=== PATIENT | male | born 1980 | race Caucasian/White ===

== ENCOUNTER 2017-02-15 23:19 | Emergency (ER) | payer OTHER ==
[~2017-02-15] VITALS: Ht 175.3 cm; Wt 77.1 kg
[~2017-02-15 23:19] MED LIST: BUSP-8 PO
[2017-02-15 23:24] VITALS: TEMP 36.6; Ht 175.3 cm; Wt 77.1 kg
[2017-02-15] MEDS ORDERED: DiphenhydrAMINE HCL 50 MG/ML VIAL IV STA (23:31)
[2017-02-15] MEDS ORDERED: KETOROLAC TROMETHAMINE 30 MG/ML VIAL IV STA (23:31)
[2017-02-15] MEDS ORDERED: PROCHLORPERAZINE 5 MG/ML 2 ML VIAL IV STA (23:31)
[2017-02-15] MEDS ORDERED: DEXAMETHASONE SOD INJ 10 MG/ML VIAL IV ONE (23:45)
[2017-02-15] MEDS ORDERED: SODIUM CHLORIDE 0.9% 1000ML 1,000 ML IV ONE (23:45)
[2017-02-16 01:24] VITALS: BP 131/77; PULSE 83; O2SAT 94
--- NOTE | 2017-02-16 03:26 | EMERGENCY ROOM VISIT NOTE ---
History First contact with patient: 23:26 Chief Complaint: HEADACHE Stated Complaint: MIGRAINE History of Present Illness The patient is a 36 year old male who presents to the Emergency Room with complaints of migraine headache that began worsening throughout the course of today. The patient has a history of migraine headaches, and this feels similar to previous episodes of bad migraines. The patient did take Maxalt today without relief of symptoms. He has not had fever or chills. No neck pain or carbon monoxide exposure. The patient rates his discomfort a 9/10. Review of Systems More than 10 systems were reviewed and otherwise negative with the exception of history of present illness. Past Medical/Surgical History Medical Problems: (1) ACQ SPONDYLOLISTHESIS (2) Anxiety (3) LUMBAR DISC DISPLACEMENT (4) Lumbar spinal fusion Family History No pertinent family history Social History Smoking Status: Current Every Day Smoker Marital Status: Occupation Status: employed Current/Historical Medications Scheduled Baclofen (Baclofen), 20 MG PO QID Buspirone Hcl (Buspirone Hcl), 10 MG PO QID Celecoxib (Celebrex), 50 MG PO BID Gabapentin (Neurontin), 300 MG PO HS Methylphenidate Hcl (Concerta), 54 MG PO QAM Mirtazapine (Remeron), 45 MG PO HS Oxycodone Hcl (Oxycodone Hcl), 15 MG PO QID Zolpidem Tartrate (Ambien), 10 MG PO HS Allergies Coded Allergies: Sulfa Drugs (Verified Allergy, Intermediate, tachycardia, hyperactivity, ) Penicillins (Verified Allergy, Unknown, HIVES, 10/05/15) Physical Exam Vital Signs Date Time Temp Pulse Resp B/P (MAP) Pulse Ox O2 Delivery O2 Flow Rate FiO2 02/16/17 01:24 83 18 131/77 94 02/16/17 00:24 86 18 139/84 96 Room Air 02/15/17 23:24 36.6 18 18 143/75 97 Room Air Pain Rating (0-10): 1.0 Physical Exam VITALS: Vitals are noted on the nurse's note and reviewed by myself. Vital signs stable. GENERAL: Well-developed, well-nourished, white male who is resting in a darkened emergency department room with his hands over his head and face. HEAD: Normocephalic atraumatic. EARS: External ear normal. External auditory canals clear, tympanic membranes pearly bateman without erythema or effusion bilaterally. EYES: Pupils equal round and reactive to light and accommodation. Conjunctivae without injection, sclerae without icterus. Extraocular movements intact. NOSE: Patent, turbinates without inflammation or discharge. MOUTH: Mucous membranes moist. Tonsils are not enlarged. Pharynx without erythema, blood, or exudate. Uvula midline. Airway patent. NECK: Supple without nuchal rigidity. No lymphadenopathy. No thyromegaly. Cervical spine is nontender. No meningismus. HEART: Regular rate and rhythm without murmurs gallops or rubs. LUNGS: Clear to auscultation bilaterally without wheezes, rales or rhonchi. No retractions or accessory muscle use. Medical Decision & Procedures Medications Administered Medications (Trade) Dose Ordered Sig/Narayan Route Start Time Stop Time Status Last Admin Dose Admin Sodium Chloride 1,000 ml @ 999 mls/hr Q1H1M ONCE IV 02/15/17 23:45 02/16/17 00:45 DC 02/15/17 23:37 999 MLS/HR Diphenhydramine HCl (Benadryl Inj) 50 mg NOW STAT IV 02/15/17 23:31 02/15/17 23:33 DC 02/15/17 23:37 50 MG Prochlorperazine Edisylate (Compazine Inj) 10 mg NOW STAT IV 02/15/17 23:31 02/15/17 23:33 DC 02/15/17 23:42 10 MG Dexamethasone Sodium Phosphate (Decadron Inj) 10 mg NOW ONCE IV 02/15/17 23:45 02/15/17 23:46 DC 02/15/17 23:40 10 MG Ketorolac Tromethamine (Toradol Inj) 30 mg NOW STAT IV 02/15/17 23:31 02/15/17 23:33 DC 02/15/17 23:39 30 MG ED Course Physical exam and history were performed. Nursing notes and EMR were reviewed. Patient appears to have a migraine headache that started earlier today. The patient does not appear toxic or with meningitis or encephalitis on examination. This feels similar to his bad migraines, and his last CT scan of the head was evidently less than 1 year ago. IV access was established and the patient was hydrated and medicated as above. The patient was monitored here in the department for nearly 3 hours. Over this interval he was able to sleep very comfortably in his ER bed. His family did arrive in the latter part of his visit, as the patient did present via ambulance for his complaint today. The patient appears well for discharge home and was much more comfortable. He will be discharged home under the care of his family and asked to follow with his primary care physician or neurologist with any ongoing or persistent symptoms. The chart was completed utilizing [employer] Voice Recognition Software. Grammatical errors, random word insertions, pronoun errors, and incomplete sentences are an occasional consequence of this system due to software limitations, ambient noise, and hardware issues. Any formal questions or concerns about the content, text, or information contained within the body of this dictation should be directly addressed to the provider for clarification. . Medical Decision The differential diagnosis includes, but is not limited to: acute intracranial bleed, meningitis, encephalitis, mass or mass effect, sinusitis, infection, tumor, headache, temporal arteritis and carbon monoxide exposure, and migraine. [place] Drug Monitoring Program Search Results: patient reviewed within database, see additional documentation (on chronic oxycodone 15 mg 4 times daily) Impression Primary Impression: Headache Departure Information Dispostion Home / Self-Care Condition GOOD Referrals Joann Romero M.D. (PCP) Forms HOME CARE DOCUMENTATION FORM, IMPORTANT VISIT INFORMATION Patient Instructions My [facility] Additional Instructions You were seen and evaluated today on an emergency basis only. This is not a substitute for, or an effort to provide, complete comprehensive medical care. It is not possible to recognize and treat all injuries or illnesses in a single emergency department visit. For this reason it is recommended that you followup with your primary care physician or neurologist this week for ongoing care and evaluation. DO NOT drive, drink alcohol, operate machinery, or perform dangerous activities today. You were given medications in the ER that can affect your ability to safely function or operate a vehicle. Rest today in a quiet, peaceful, dark environment and get a full 8-10 hrs of sleep tonight. Avoid loud noises, smoke/smoking, alcohol, bright lights, stress, or physical exertion today to minimize the chance the headache may return. Continue current medications. Ibuprofen(Motrin, Advil) may be used for fever or pain. Use 600mg every six hours as needed. Take with food. Avoid using more than 2400mg in a 24 hour period. Do not use 2400mg per day for more than three consecutive days without physician direction. Prolonged inappropriate use can lead to stomach upset or ulcers. (AND/OR) Acetaminophen(Tylenol) may be used for fever or pain. Use 1000mg every six hours as needed. Avoid using more than 4000mg in a 24 hour period. Return to the ER for passing out, worsening headache, vision problems, neck stiffness/pain, fevers, vomiting, worsening of your condition, or as needed.
[2017-07-16] MEDS ORDERED: CNC/54 PO (00:19)
[2017-07-16] MEDS ORDERED: LRS20 PO (00:19)
[2017-07-16] MEDS ORDERED: NRN/300 PO (00:19)
[2017-07-16] MEDS ORDERED: ZOLP10TA PO (00:19)
[2017-07-16] MEDS ORDERED: MIRT45TA PO (00:19)
[2017-07-16] MEDS ORDERED: CELE50CA PO (00:19)
[2017-07-16] MEDS ORDERED: OXY/15 PO (00:19)
== END 2017-02-16 01:24 | disposition home or self-care (01) ==
LOC: EDBD 23:19 → C.EDC 23:24
DX: R51 Headache (principal); F41.9 Anxiety disorder, unspecified; M51.26 Other intervertebral disc displacement, lumbar region; F17.200 Nicotine dependence, unspecified, uncomplicated; Z98.1 Arthrodesis status; Z79.899 Other long term (current) drug therapy; Z88.0 Allergy status to penicillin; Z88.2 Allergy status to sulfonamides

== ENCOUNTER 2017-07-04 01:40 | Emergency (ER) | payer OTHER ==
[~2017-07-04] VITALS: Ht 172.7 cm; Wt 75.0 kg
[~2017-07-04 01:40] MED LIST changes: +CELE50CA PO; +CNC/54 PO; +LRS20 PO; +MIRT45TA PO; +NRN/300 PO; +OXY/15 PO; +ZOLP10TA PO
[2017-07-04 01:46] VITALS: TEMP 36.8; Ht 172.7 cm; Wt 75.0 kg
[2017-07-04] MEDS ORDERED: LIDOCAINE HCL 1% 20 ML VIAL ONE (01:57)
[2017-07-04] MEDS ORDERED: XYLOCAINE 1%/SOD BICARB 20 ML VIAL INFIL ONE (02:15)
[2017-07-04 02:36] VITALS: BP 130/77; PULSE 88; O2SAT 93
--- NOTE | 2017-07-04 04:03 | EMERGENCY ROOM VISIT NOTE ---
ED Visit Note First contact with patient: 01:51 CHIEF COMPLAINT: Finger laceration HISTORY OF PRESENT ILLNESS: This 37-year-old patient presents to the emergency department after cutting the left second finger on a table saw on accident just prior to arrival and has superficial abrasions to the left third finger and right second finger. The bleeding has not stopped. Denies weakness or numbness of the fingers. The patient has full range of motion of the fingers. The patient rates the pain as mild and 2/10. The patient denies any other injuries. The patient's tetanus shot is up to date. REVIEW OF SYSTEMS: A 6 system review of systems was completed with positives and pertinent negatives listed in the HPI. ALLERGIES: Penicillin, sulfa MEDICATIONS: Oxycodone, reviewed PMH: Medical Problems: (1) ACQ SPONDYLOLISTHESIS Status: Resolved (2) Anxiety Status: Chronic (3) LUMBAR DISC DISPLACEMENT Status: Resolved (4) Lumbar spinal fusion Status: Resolved SOCIAL HISTORY: Drug use PHYSICAL EXAM: Vital Signs: Reviewed Nurse's notes, vital signs stable. GENERAL : Pleasant male, in no acute distress, well developed, well nourished. SKIN: There is a 3 cm long laceration on the palmar aspect of the left second finger. The edges gape apart with traction. There is no foreign material in the wound and it looks clean. There is bleeding. No deep structures such as tendons, bones, or significant blood vessels are seen in the base of the wound. Extension and flexion of the finger is full and strong. Superficial abrasion to the left third distal aspect finger and superficial abrasion to the right second distal aspect of the finger Full range of motion of the wrist and other fingers. Capillary refill less than 2 seconds. Normal sensation to light and sharp touch. EMERGENCY DEPARTMENT COURSE: I examined the patient. Using sterile technique the wound was cleansed with Betadine. 2 ml of 1% buffered lidocaine was used to perform a digital block to anesthetize the patient. The area was sterilely draped. Once the patient was anesthetized, the wound was copiously irrigated under pressure with sterile saline. The wound was explored and there were no deep structures injured. The laceration was repaired using 7 simple interrupted 4-0 nylon sutures. The patient tolerated the procedure well. Hemostasis was achieved. The area was cleaned with sterile saline and dressed with bacitracin ointment and bandage. Patient was placed in a metal cage finger splint for protection and neurovascular status was rechecked after placement and is intact. The patient was discharged home in good condition. DIAGNOSIS: #1 Finger laceration, left second finger, initial encounter #2 superficial abrasion to left third finger and right second finger DISCHARGE INSTRUCTIONS & TREATMENT: As below Problem List Medical Problems: (1) ACQ SPONDYLOLISTHESIS Status: Resolved (2) Anxiety Status: Chronic (3) LUMBAR DISC DISPLACEMENT Status: Resolved (4) Lumbar spinal fusion Status: Resolved Current/Historical Medications Scheduled Baclofen (Baclofen), 20 MG PO QID Buspirone Hcl (Buspirone Hcl), 10 MG PO QID Celecoxib (Celebrex), 50 MG PO BID Gabapentin (Neurontin), 300 MG PO HS Methylphenidate Hcl (Concerta), 54 MG PO QAM Mirtazapine (Remeron), 45 MG PO HS Oxycodone Hcl (Oxycodone Hcl), 15 MG PO QID Zolpidem Tartrate (Ambien), 10 MG PO HS Allergies Coded Allergies: Sulfa Drugs (Verified Allergy, Intermediate, tachycardia, hyperactivity, ) Penicillins (Verified Allergy, Unknown, HIVES, 10/05/15) Vital Signs Date Time Temp Pulse Resp B/P (MAP) Pulse Ox O2 Delivery O2 Flow Rate FiO2 07/04/17 02:36 88 18 130/77 93 07/04/17 01:46 36.8 98 18 132/91 93 Room Air Departure Information Impression Primary Impression: Laceration of left index finger Additional Impression: finger abrasions Dispostion Home / Self-Care Condition GOOD Forms WORK / SCHOOL INSTRUCTIONS, HOME CARE DOCUMENTATION FORM, IMPORTANT VISIT INFORMATION Patient Instructions [facility], ED Abrasion, ED Laceration All Additional Instructions Antibiotic ointment and bandage to the areas until healed. Follow up with family doctor or return for any signs of infection (increasing redness, swelling , drainage, or fever). Keep covered when in sun until fully healed then SPF 50 or higher until scar healed. Wear a finger cage over bacitracin and bandage for protection wall using your hands. Do not have it so tight that you cannot feel your finger. Keep wound clean and dry. Do not allow any crusting or dried blood to accumulate on sutures. If this occurs, use a 1:1 solution of hydrogen peroxide/ water on a Q-tip to clean the wound. Use an antibiotic ointment for 3-4 days, then let wound dry. Suture removal in 10-12 days. Return sooner for any signs of infection (increasing redness, swelling, drainage). Ice and elevate for swelling and pain. Ibuprofen 600 mg and Tylenol 1000 mg every 6 hrs for pain. Keep covered when in sun until sutures removed then SPF 50 or higher for one year. Vitamin E oil if desired two weeks after suture removal for reduction of scar. Problem Qualifiers
== END 2017-07-04 02:37 | disposition home or self-care (01) ==
LOC: C.EDB 01:41
DX: S61.217A Laceration without foreign body of left little finger without damage to nail, initial encounter (principal); S60.413A Abrasion of left middle finger, initial encounter; S60.410A Abrasion of right index finger, initial encounter; W31.2XXA Contact with powered woodworking and forming machines, initial encounter; F41.9 Anxiety disorder, unspecified; M43.10 Spondylolisthesis, site unspecified; M51.26 Other intervertebral disc displacement, lumbar region; Z98.1 Arthrodesis status; Z79.899 Other long term (current) drug therapy; Z88.2 Allergy status to sulfonamides; Z88.0 Allergy status to penicillin

== ENCOUNTER 2017-07-16 18:03 | Emergency (ER) | payer OTHER ==
[~2017-07-16] VITALS: Ht 172.7 cm; Wt 75.3 kg
[2017-07-16 18:12] VITALS: Ht 172.7 cm; Wt 75.3 kg
[2017-07-16] MEDS ORDERED: BUSP15TA70 PO (18:36)
[2017-07-16] MEDS ORDERED: CEPH500C2 PO (18:38)
[2017-07-16] MEDS ORDERED: CEPHALEXIN 500MG HOME PACK 1 EA BTL PO ONE (18:45)
[2017-07-16 18:59] VITALS: BP 144/92; PULSE 99; TEMP 36.5; O2SAT 97
--- NOTE | 2017-07-17 23:23 | EMERGENCY ROOM VISIT NOTE ---
ED Visit Note First contact with patient: 18:14 CHIEF COMPLAINT: I need to have my stitches removed. HISTORY OF PRESENT ILLNESS: Mr. Krishnamurthy is a 37-year-old white male who ambulates into the ED accompanied by his 2 daughters requesting suture removal. Patient reports he sustained a laceration on July 03, 12 days ago, and was seen in this emergency department and had his wound repaired with sutures. He reports initially he feels like the wound was healing well but over the last 3 days he has noted some redness and swelling around the wound and today he noted some pus like drainage from the wound. He denies any associated symptoms including fevers, chills, sweats, other skin eruptions, upper respiratory tract symptoms, shortness of breath, decreased appetite, nausea/vomiting, finger pain , finger weakness/numbness/tingling. PHYSICAL EXAM: Vital Signs: Date Time Temp Pulse Resp B/P (MAP) Pulse Ox O2 Delivery O2 Flow Rate FiO2 07/16/17 18:12 36.5 99 18 144/92 97 Room Air General: 37 year-old white male in no acute distress, nontoxic-appearing, afebrile and hemodynamically stable. Neurological: Awake, alert and oriented 3. Answering questions appropriately and following commands. Left Index Finger: A gross bony deformity. Patient has swelling and erythema around his sutured wound. In the central portion of the wound there is minimal purulent drainage. Additionally there is minimal maceration of the wound edges. He has full range of motion in flexion and extension of the PIP, DIP and MCP joints. Throughout the finger the skin was warm and pink and capillary refill is brisk. He was able to distinguish light sensations through all dermatomes. ED COURSE: Patient is assessed as noted above. Patient's medication list was reviewed. A clean dressing was placed over the wound. Patient was educated about today's findings and instructed on his treatment plan ; he verbalized understanding and agreement with this plan. DISPOSITION: Patient discharged home in stable condition. CLINICAL IMPRESSION: Wound infection. PLAN: Patient is encouraged use ibuprofen or acetaminophen as needed for pain per Patient was placed on a 5 day course of Keflex 500 mg 4 times a day. Patient was educated on wound care and worsening signs of infection. Patient is encouraged to follow-up with his family physician or return to the ED after his course of antibiotics for recheck and possible suture removal. Patient was encouraged return to the ED for any worsening signs of infection or any new/concerning symptoms.
== END 2017-07-16 18:59 | disposition home or self-care (01) ==
LOC: C.EDB 18:05 → C.EDD 18:59
DX: T81.4XXA Infection following a procedure, initial encounter (principal); Y84.8 Other medical procedures as the cause of abnormal reaction of the patient, or of later complication, without mention of misadventure at the time of the procedure

== ENCOUNTER 2017-07-24 16:02 | Emergency (ER) | payer OTHER ==
[~2017-07-24] VITALS: Ht 172.7 cm; Wt 77.1 kg
[~2017-07-24 16:02] MED LIST changes: -BUSP-8 PO; +BUSP15TA70 PO
[2017-07-24 16:05] VITALS: Ht 172.7 cm; Wt 77.1 kg
--- NOTE | 2017-07-24 16:31 | EMERGENCY ROOM VISIT NOTE ---
ED Visit Note First contact with patient: 16:20 CHIEF COMPLAINT: Suture removal This patient returns to the ED today for removal of sutures that were placed almost 3 weeks ago. The patient was seen here one week ago for evaluation for possible suture removal, but he had developed a wound infection at that time, and it was not felt that the sutures should be removed. He was given a five- day course of Keflex which she completed, and he reports that there has been no further swelling, redness, or drainage from the wound. The patient feels like the laceration has healed well. REVIEW OF SYSTEMS: Head: No headache, injury or neck pain. Skin: No rash, new lesions, or masses. General: No fever or chills, fatigue, loss of appetite , or significant recent weight gain or loss. PMH: Reviewed and unchanged from prior visit. SOCIAL HISTORY: Patient lives at home. PHYSICAL EXAM: Vital Signs: Reviewed Nurse's notes. There is a sutured wound on the left second finger with no signs of infection. There is no erythema, swelling, or tenderness. EMERGENCY DEPARTMENT COURSE: The sutures were removed without any difficulty and there was no separation of the wound edges. DIAGNOSIS: Healing laceration and suture removal DISCHARGE INSTRUCTIONS AND TREATMENT: Wash any remaining crusts off of the wound today and resume your normal activities. Problem List Medical Problems: (1) ACQ SPONDYLOLISTHESIS Status: Resolved (2) Anxiety Status: Chronic (3) Headache Status: Resolved (4) Laceration of left forearm Status: Resolved (5) LUMBAR DISC DISPLACEMENT Status: Resolved (6) Lumbar spinal fusion Status: Resolved (7) Paresthesias with subjective weakness Status: Resolved Current/Historical Medications Scheduled Baclofen (Baclofen), 20 MG PO QID Buspirone Hcl (Buspar), 15 MG PO QID Celecoxib (Celebrex), 50 MG PO BID Gabapentin (Neurontin), 300 MG PO QID Methylphenidate Hcl (Concerta), 54 MG PO QAM Mirtazapine (Remeron), 45 MG PO HS Oxycodone Hcl (Oxycodone Hcl), 15 MG PO QID Zolpidem Tartrate (Ambien), 10 MG PO HS Allergies Coded Allergies: Sulfa Drugs (Verified Allergy, Intermediate, tachycardia, hyperactivity, ) Penicillins (Verified Allergy, Unknown, HIVES, 10/05/15) Vital Signs Date Time Temp Pulse Resp B/P (MAP) Pulse Ox O2 Delivery O2 Flow Rate FiO2 07/24/17 16:05 36.8 73 20 149/94 95 Room Air Departure Information Impression Primary Impression: Encounter for removal of sutures Referrals Joann Romero M.D. (PCP) Patient Instructions [facility]
[2017-07-24 16:32] VITALS: BP 149/94; PULSE 73; TEMP 36.8; O2SAT 95
== END 2017-07-24 16:33 | disposition home or self-care (01) ==
LOC: C.EDB 16:02 → C.EDD 16:33
DX: S61.211D Laceration without foreign body of left index finger without damage to nail, subsequent encounter (principal); X58.XXXD Exposure to other specified factors, subsequent encounter

== ENCOUNTER 2017-07-31 20:17 | Emergency (ER) | payer OTHER ==
[~2017-07-31] VITALS: Ht 172.7 cm; Wt 75.3 kg
[2017-07-31 20:26] VITALS: TEMP 37; Ht 172.7 cm; Wt 75.3 kg
[2017-07-31] MEDS ORDERED: MoRPHine SULFATE 10 MG/ML CARP/VIAL IM STA (21:26)
[2017-07-31] MEDS ORDERED: KETOROLAC TROMETHAMINE 60 MG/2 ML VIAL IM STA (21:26)
[2017-07-31] MEDS ORDERED: HYDROmorphone INJ 1 MG/ML SYR IM STA (23:14)
--- NOTE | 2017-07-31 23:33 | EMERGENCY ROOM VISIT NOTE ---
ED Visit Note First contact with patient: 20:55 I have seen and examined this patient with Diony Mckeon and generally agree with the treatment plan as discussed. Problem List Medical Problems: (1) ACQ SPONDYLOLISTHESIS Status: Resolved (2) Anxiety Status: Chronic (3) Headache Status: Resolved (4) Laceration of left forearm Status: Resolved (5) LUMBAR DISC DISPLACEMENT Status: Resolved (6) Lumbar spinal fusion Status: Resolved (7) Paresthesias with subjective weakness Status: Resolved Current/Historical Medications Scheduled Baclofen (Baclofen), 20 MG PO QID Buspirone Hcl (Buspar), 15 MG PO QID Celecoxib (Celebrex), 50 MG PO BID Gabapentin (Neurontin), 300 MG PO QID Methylphenidate Hcl (Concerta), 54 MG PO QAM Mirtazapine (Remeron), 45 MG PO HS Oxycodone Hcl (Oxycodone Hcl), 15 MG PO QID Zolpidem Tartrate (Ambien), 10 MG PO HS Allergies Coded Allergies: Sulfa Drugs (Verified Allergy, Intermediate, tachycardia, hyperactivity, ) Penicillins (Verified Allergy, Unknown, HIVES, 10/05/15) Vital Signs Date Time Temp Pulse Resp B/P (MAP) Pulse Ox O2 Delivery O2 Flow Rate FiO2 07/31/17 22:36 84 19 138/87 100 Room Air 07/31/17 20:26 37.0 104 18 144/92 98 Room Air Medications Administered Medications (Trade) Dose Ordered Sig/Narayan Route Start Time Stop Time Status Last Admin Dose Admin Morphine Sulfate (MoRPHine SULFATE INJ) 10 mg NOW STAT IM 07/31/17 21:26 07/31/17 21:27 DC 07/31/17 22:30 10 MG Ketorolac Tromethamine (Toradol Inj) 60 mg NOW STAT IM 07/31/17 21:26 07/31/17 21:27 DC 07/31/17 22:31 60 MG Hydromorphone HCl (Dilaudid Inj) 1 mg ONE STAT IM 07/31/17 23:14 07/31/17 23:15 DC 07/31/17 23:29 1 MG Departure Information Impression Primary Impression: Acute exacerbation of chronic low back pain Dispostion Home / Self-Care Forms HOME CARE DOCUMENTATION FORM, IMPORTANT VISIT INFORMATION Patient Instructions My [facility] Additional Instructions Follow-up with your family doctor and pain clinic to discuss further pain management options. If pain persists, call Dr. Ewing's office for reevaluation.
[2017-07-31 23:37] VITALS: BP 137/70; PULSE 82; O2SAT 98
--- NOTE | 2017-08-01 00:08 | EMERGENCY ROOM VISIT NOTE ---
History First contact with patient: 20:55 Chief Complaint: BACK PAIN Stated Complaint: SEVERE LUMBAR BACK PAIN History of Present Illness The patient is a 37 year old male who presents to the Emergency Room with complaints of severe lower back pain. The patient reports a history of chronic back pain, status post back surgery with Dr. Ewing and a multispecialty team from [facility] in [place]. This surgery was performed in December 2010. The patient reports that he continues to have chronic pain, and is currently under pain management with the [facility] in [place]. The patient admits that he missed his appointment on 07/28/17 because his daughter had a doctor's appointment for a finger infection. When he realized that he forgot his appointment, he went to the pain clinic and was advised that he was going to be discharged due to policy agreements. The patient reports that he has run out of his oxycodone medications, and has not had them for the past 5 days. He was seen by his PCP, Dr. Romero, who provided him a prescription for prednisone and Ativan. He has an appointment in 2 days with a counselor at his pain clinic to consider further treatment options. The patient denies any recent injury to his back. He denies any bladder or bowel incontinence, saddle anesthesias, lower extremity weakness or foot drop. He rates his discomfort a 9 out of 10. Review of Systems 10 system review was performed and was negative except for pertinent positives and negatives as indicated in history of present illness Past Medical/Surgical History Medical Problems: (1) ACQ SPONDYLOLISTHESIS (2) Anxiety (3) Headache (4) Laceration of left forearm (5) LUMBAR DISC DISPLACEMENT (6) Lumbar spinal fusion (7) Paresthesias with subjective weakness Family History Unremarkable Social History Smoking Status: Current Every Day Smoker Alcohol Use: none Marital Status: Housing Status: lives with family Occupation Status: employed Current/Historical Medications Scheduled Baclofen (Baclofen), 20 MG PO QID Buspirone Hcl (Buspar), 15 MG PO QID Celecoxib (Celebrex), 50 MG PO BID Gabapentin (Neurontin), 300 MG PO QID Methylphenidate Hcl (Concerta), 54 MG PO QAM Mirtazapine (Remeron), 45 MG PO HS Oxycodone Hcl (Oxycodone Hcl), 15 MG PO QID Zolpidem Tartrate (Ambien), 10 MG PO HS Physical Exam Vital Signs Date Time Temp Pulse Resp B/P (MAP) Pulse Ox O2 Delivery O2 Flow Rate FiO2 07/31/17 23:37 82 19 137/70 98 Room Air 07/31/17 22:36 84 19 138/87 100 Room Air 07/31/17 20:26 37.0 104 18 144/92 98 Room Air Physical Exam CONSTITUTIONAL: Healthy and well nourished. Alert and oriented X 3 with positive affect. Patient appears in mild to moderate discomfort. HEENT: Normocephalic, atraumatic. Pupils equal, round and reactive. NECK: Full active range of motion without discomfort. RESPIRATORY: Clear to auscultation bilaterally with no wheezing, crackles, rhonchi or stridor. CARDIOVASCULAR: Regular rate and rhythm with no murmurs, rubs or gallops. GASTROINTESTINAL: Bowel sounds present in all quadrants. Soft and nontender to palpation. MUSCULOSKELETAL: The patient has generalized tenderness to palpation through the lower back region. Negative sitting straight leg raise. Negative logroll. Pedal pulses are intact. Ankle plantar/dorsiflexion strength is 4 out of 5 and symmetric bilaterally. INTEGUMENTARY: No rash or other significant dermatologic conditions noted. NEUROLOGIC: No focal neurologic deficits noted. Lower extremities are sensory intact. Medical Decision & Procedures Medications Administered Medications (Trade) Dose Ordered Sig/Narayan Route Start Time Stop Time Status Last Admin Dose Admin Morphine Sulfate (MoRPHine SULFATE INJ) 10 mg NOW STAT IM 07/31/17 21:26 07/31/17 21:27 DC 07/31/17 22:30 10 MG Ketorolac Tromethamine (Toradol Inj) 60 mg NOW STAT IM 07/31/17 21:26 07/31/17 21:27 DC 07/31/17 22:31 60 MG Hydromorphone HCl (Dilaudid Inj) 1 mg ONE STAT IM 07/31/17 23:14 07/31/17 23:15 DC 07/31/17 23:29 1 MG ED Course Patient history and physical exam were performed. Nurse's notes were reviewed. Vital signs were reviewed, showing an elevated blood pressure 144/92. The patient is forthright and admits that he made a mistake by missing his appointment at the pain clinic. The patient reports that he has been a customer at this pain clinic since 2011, and has always been compliant with his pain contract and policies. She does have an appointment with a counselor at the clinic on Monday to discuss further treatment options. The patient reports that he was told to come to the emergency department for pain management , but not to receive any additional prescriptions or medicines to take home. The patient is therefore refusing any prescriptions or home packs, and is only requesting pain management while in the emergency department. The patient reported that he was able to call for a ride as he drove here himself. The patient was accordingly administered morphine 10 mg and Toradol 60 mg IM. The patient then reported that he called several people and was unable to secure a ride. He also reported that the medications administered did not provide any relief. We did explain that the patient cannot drive for at least 4 hours after receiving his injection, the patient voiced understanding. He was administered an additional Dilaudid 1 mg IM, and was provided discharge instructions. Our ED [employer] Collector escorted the patient to the waiting room to wait for his ride, advising security that he received narcotic treatment and drove to the emergency department. The patient was instructed to follow-up with the pain clinic and PCP as needed for further management of his acute exacerbation of chronic lumbar pain. It is noted that the patient's blood pressure was elevated at 144/92 while in the emergency department, and was encouraged to follow-up with his PCP for blood pressure recheck. The case was also discussed with Dr. Alanis, ED attending physician, who agrees with workup, plan of care and also independently evaluated the patient. Medical Decision Based on history and physical exam findings, I do not suspect acute trauma, fracture, hematoma, abscess, cellulitis or emergent compressive neuropathy such as conus medullaris or cauda equina syndrome. [place] Drug Monitoring Program Search Results: patient reviewed within database, see additional documentation Medication Reconcilliation Current Medication List: was personally reviewed by me Blood Pressure Screening Patient's blood pressure: Elevated blood pressure Blood pressure disposition: Referred to PCP Impression Primary Impression: Acute exacerbation of chronic low back pain Additional Impression: Elevated blood pressure reading Departure Information Dispostion Home / Self-Care Forms HOME CARE DOCUMENTATION FORM, IMPORTANT VISIT INFORMATION Patient Instructions My [facility] [address] Additional Instructions Follow-up with your family doctor and pain clinic to discuss further pain management options. If pain persists, call Dr. Ewing's office for reevaluation. Problem Qualifiers
== END 2017-07-31 23:55 | disposition home or self-care (01) ==
LOC: C.EDB 20:19 → C.EDC 23:55
DX: M54.5 Low back pain (principal); G89.29 Other chronic pain; R03.0 Elevated blood-pressure reading, without diagnosis of hypertension; F41.9 Anxiety disorder, unspecified; F17.200 Nicotine dependence, unspecified, uncomplicated; Z98.1 Arthrodesis status; Z79.899 Other long term (current) drug therapy

== ENCOUNTER 2018-04-24 19:05 | Inpatient (IN) | payer OTHER ==
[~2018-04-24] VITALS: Ht 172.7 cm; Wt 79.2 kg
[~2018-04-24 19:05] MED LIST changes: +CNC/36 PO; -CNC/54 PO
[2018-04-24] MEDS ORDERED: KETOROLAC TROMETHAMINE 30 MG/ML VIAL IV STA (19:22)
[2018-04-24] MEDS ORDERED: SODIUM CHLORIDE 0.9% 1000ML 1,000 ML IV ONE ×2 (19:22→19:42)
--- NOTE | 2018-04-24 19:28 | EMERGENCY ROOM VISIT NOTE ---
History Report prepared by Gabi: Marlena Sawyer Under the Supervision of: Dr. Eulalio Palmer M.D. First contact with patient: 19:16 Chief Complaint: DENTAL PAIN Stated Complaint: SEVERE SWELLING, JAW,MOUTH,NAUSEA,NUMBNESS HANDS History of Present Illness The patient is a 37 year old male who presents to the Emergency Room with complaints of worsening swelling on the right side of his mouth since this morning. The patient states that the swelling is moving to his chin and his lips are beginning to swell. He also states that he began to feel feverish around an hour ago and that his fingers recently began tingling. The patient states that he has been drinking a lot but he is unable to urinate. The patient states that he has had a previous abscess in his mouth before but states it was nothing like this. The patient states that he was on antibiotics about three weeks ago. He also states that he taxes oxycodone for a back condition that he recently took about 45 minutes ago. The patient states that he does smoke, he does not chew and does not have any drug or alcohol use. Source of History: patient Onset: this morning Position: jaw (right ) Quality: other (swelling ) Timing: worsening Associated Symptoms: + fevers, + urinary symptoms Note: additional symptoms: tingling fingers Review of Systems See HPI for pertinent positives and negatives. A total of ten systems were reviewed and were otherwise negative. Past Medical & Surgical Medical Problems: (1) ACQ SPONDYLOLISTHESIS (2) Anxiety (3) Facial cellulitis (4) Headache (5) Laceration of left forearm (6) LUMBAR DISC DISPLACEMENT (7) Lumbar spinal fusion (8) Paresthesias with subjective weakness Social History Smoking Status: Current Every Day Smoker Alcohol Use: none Marital Status: Housing Status: lives with family Occupation Status: employed Current/Historical Medications Scheduled Baclofen (Baclofen), 20 MG PO TID Buspirone Hcl (Buspar), 15 MG PO QID Celecoxib (Celebrex), 50 MG PO BID Gabapentin (Neurontin), 1,200 MG PO HS Lisinopril (Prinivil), 5 MG PO DAILY Methylphenidate Hcl (Concerta), 36 MG PO DAILY Mirtazapine (Remeron), 45 MG PO HS Oxycodone Hcl (Oxycodone Hcl), 15 MG PO QID Rizatriptan Benzoate (Maxalt), 1 TAB PO UD Zolpidem Tartrate (Ambien), 10 MG PO HS Allergies Coded Allergies: Sulfa Drugs (Verified Allergy, Intermediate, tachycardia, hyperactivity, ) Penicillins (Verified Allergy, Unknown, HIVES, 03/09/18) Physical Exam Vital Signs Date Time Temp Pulse Resp B/P (MAP) Pulse Ox O2 Delivery O2 Flow Rate FiO2 04/24/18 21:47 38.1 99 18 122/72 94 Room Air 04/24/18 21:06 103 16 133/80 97 Room Air 04/24/18 20:27 39.0 95 18 138/92 96 Room Air 04/24/18 20:15 99 28 138/92 99 Room Air 04/24/18 19:46 102 04/24/18 19:07 37.8 92 18 158/113 97 Room Air Physical Exam GENERAL: Awake, alert, well-appearing mild discomfort evident HENT: atraumatic. Right mandibular and submandibular swelling and tenderness. No crepitus. No pharyngeal erythema or swelling. No stridor. Poor dentition. EYES: Normal conjunctiva. Sclera non-icteric. NECK: Supple. No nuchal rigidity. RESPIRATORY: Clear to auscultation. No wheezes. Normal respiratory effort. CARDIAC: Normal rate. Normal rhythm. Extremities warm and well perfused. GI: Soft, non-distended. No tenderness to palpation. No rebound or guarding. N RECTAL: Deferred. MUSCULOSKELETAL: Atraumatic. Chest examination reveals no tenderness. LOWER EXTREMITIES: Calves are equal size bilaterally and non-tender. No edema NEURO: Normal sensorium. No sensory or motor deficits noted. No facial droop. SKIN: Warm and dry. No rash or jaundice noted. Medical Decision & Procedures ER Provider Diagnostic Interpretation: Radiology results as stated below per my review and radiologist interpretation: CT SCAN OF THE NECK WITH IV CONTRAST CLINICAL HISTORY: Right-sided facial swelling. COMPARISON STUDY: No priors. TECHNIQUE: Following the IV administration of 115 cc of Optiray 320, CT scan of the soft tissues of the neck was performed from the skull base to the upper chest. Images are reviewed in the axial, sagittal, and coronal planes. IV contrast was administered without complication. A dose lowering technique was utilized adhering to the principles of ALARA. CT DOSE: 426.59 mGy.cm FINDINGS: Soft tissues and dentition: Numerous dental caries are identified. There is a periapical lucency identified around the most posterior right maxillary molar. Periapical lucencies are also identified around a right posterior mandibular molar, the right mandibular central and lateral incisors, the right mandibular canine, as well as a left mandibular premolar and molar. There is cortical breakthrough seen around the periapical lucency involving the left mandibular molar. There is extensive superficial and deep soft tissue edema throughout the right facial soft tissues, greatest overlying the mandible. A subperiosteal abscess is seen superficial to the right anterior mandible on image #170. This measures 2.2 x 1.8 x 0.6 cm. Pharynx: There is soft tissue inflammation identified within the right submental and sublingual soft tissues, which also involves the anterior pharyngeal soft tissues. The appearance is concerning for Jb's angina. The nasopharynx is normal and appearance. There is equivocal narrowing of the supraglottic airway. There is no evidence of mass lesion. The vocal cords are symmetric. The parapharyngeal fat is maintained. The prevertebral/retropharyngeal soft tissues are within normal limits. There is no evidence of tonsillar abscess. The epiglottis is normal. Lymphadenopathy: Mildly enlarged and hyperemic submandibular and cervical lymph nodes are likely on a reactive basis. The largest node in the right cervical chain as seen on image #183 and measures 2.0 cm and length Thyroid: Normal in size and attenuation. Salivary glands: The parotid and submandibular glands are within normal limits. Brain parenchyma: The visualized brain parenchyma at the skull base is normal in appearance. Vascular structures: The carotid arteries and jugular veins are widely patent bilaterally. Skeletal structures: Imaged portions of the calvarium at the skull base are within normal limits. The cervical spine appears intact. Orbits: The bony orbits are intact. Orbital contents are normal in appearance. Sinuses and mastoids: Mild mucosal thickening is seen throughout the paranasal sinuses. The mastoid air cells are well pneumatized. Lung apices: Visualized apical lung parenchyma is clear. IMPRESSION: 1. There are numerous dental caries as well as periapical lucencies as detailed above. Follow-up with dentistry is recommended. 2. There is evidence of extensive right-sided facial cellulitis, with a subperiosteal abscess along the right anterior aspect of the mandible as detailed above. 3. Inflammatory change/infection extends into the right submental and sublingual soft tissues and also involves the anterior pharynx. The appearance is concerning for Jb's angina. 4. There is questionable narrowing of the supraglottic airway. 5. Mildly enlarged cervical lymph nodes are likely on a reactive basis. Electronically signed by: Alec Perez M.D. 04/24/2018 8:32 PM Dictated Date/Time: 04/24/2018 8:20 PM Laboratory Results 04/24/18 19:25 Red Blood Count 5.11, Mean Corpuscular Volume 92.0, Mean Corpuscular Hemoglobin 32.9, Mean Corpuscular Hemoglobin Concent 35.7, Mean Platelet Volume 10.7, Neutrophils (%) (Auto) 77.0, Lymphocytes (%) (Auto) 14.3, Monocytes (%) (Auto) 7.7, Eosinophils (%) (Auto) 0.5, Basophils (%) (Auto) 0.1, Neutrophils # (Auto) 17.95, Lymphocytes # (Auto) 3.34, Monocytes # (Auto) 1.80, Eosinophils # (Auto) 0.12, Basophils # (Auto) 0.03 04/24/18 19:25 Test 04/24/18 19:25 04/24/18 19:53 White Blood Count 23.33 K/uL (4.8-10.8) Red Blood Count 5.11 M/uL (4.7-6.1) Hemoglobin 16.8 g/dL (14.0-18.0) Hematocrit 47.0 % (42-52) Mean Corpuscular Volume 92.0 fL (80-100) Mean Corpuscular Hemoglobin 32.9 pg (25-34) Mean Corpuscular Hemoglobin Concent 35.7 g/dl (32-36) Platelet Count 272 K/uL (130-400) Mean Platelet Volume 10.7 fL (7.4-10.4) Neutrophils (%) (Auto) 77.0 % Lymphocytes (%) (Auto) 14.3 % Monocytes (%) (Auto) 7.7 % Eosinophils (%) (Auto) 0.5 % Basophils (%) (Auto) 0.1 % Neutrophils # (Auto) 17.95 K/uL (1.4-6.5) Lymphocytes # (Auto) 3.34 K/uL (1.2-3.4) Monocytes # (Auto) 1.80 K/uL (0.11-0.59) Eosinophils # (Auto) 0.12 K/uL (0-0.5) Basophils # (Auto) 0.03 K/uL (0-0.2) RDW Standard Deviation 45.3 fL (36.4-46.3) RDW Coefficient of Variation 13.4 % (11.5-14.5) Immature Granulocyte % (Auto) 0.4 % Immature Granulocyte # (Auto) 0.09 K/uL (0.00-0.02) Anion Gap 8.0 mmol/L (3-11) Est Creatinine Clear Calc Drug Dose 87.5 ml/min Estimated GFR () 96.0 Estimated GFR (Non- 82.9 BUN/Creatinine Ratio 6.6 (10-20) Calcium Level 9.6 mg/dl (8.5-10.1) Lactic Acid Level 1.5 mmol/L (0.4-2.0) Laboratory results reviewed by me Medications Administered Medications (Trade) Dose Ordered Sig/Narayan Route Start Time Stop Time Status Last Admin Dose Admin Ketorolac Tromethamine (Toradol Inj) 15 mg NOW STAT IV 04/24/18 19:22 04/24/18 19:25 DC 04/24/18 19:37 15 MG Clindamycin Phosphate 600 mg/ Dextrose 104 ml @ 100 mls/hr ONE ONCE IV 04/24/18 19:30 04/24/18 20:32 DC 04/24/18 20:28 100 MLS/HR Sodium Chloride 1,000 ml @ 999 mls/hr Q1H1M ONCE IV 04/24/18 19:22 04/24/18 20:22 DC 04/24/18 19:38 999 MLS/HR Sodium Chloride 1,000 ml @ 999 mls/hr Q1H1M ONCE IV 04/24/18 19:42 04/24/18 20:42 DC 04/24/18 20:29 999 MLS/HR Vancomycin HCl 1500 mg/Sodium Chloride 280 ml @ 125 mls/hr NOW STAT IV 04/24/18 20:53 04/24/18 23:07 DC 04/24/18 21:46 125 MLS/HR Hydromorphone HCl (Dilaudid Inj) 1 mg NOW STAT IV 04/24/18 20:58 04/24/18 20:59 DC 04/24/18 21:05 1 MG Sodium Chloride 1,000 ml @ 125 mls/hr Q8H IV 04/24/18 21:37 05/24/18 21:36 04/24/18 23:19 125 MLS/HR Acetaminophen (Tylenol Tab) 650 mg Q4H PRN PO 04/24/18 21:45 05/24/18 21:44 04/24/18 23:12 650 MG Morphine Sulfate (MoRPHine SULFATE INJ) 3 mg Q3HWA PRN IV 04/24/18 21:45 05/08/18 21:44 04/24/18 23:14 3 MG ED Course 1915: The patient was evaluated in room C1B. A complete history and physical exam was performed. 1921: Ordered Sodium Chloride 1000 ml @ 999 mls/hr IV and Toradol Inj 15 mg IV. 1929: Ordered Clindamycin Phosphate 600 mg/Dextrose 104 ml @ 100 mls/hr IV. 1941: Ordered Sodium Chloride 1000 ml @ 999 mls/hr IV. 2052: Ordered Vancomycin HCl 1500 mg/Sodium Chloride 280 ml @ 125 mls/hr IV. 2057: Ordered Dilaudid Inj 1 mg IV. 2099: I checked on the patient. 2110: [facility] and he will evaluate the patient further. He will consult ENT in the morning. Medical Decision Possible differential diagnoses include cellulitis, dental infection, neck space infection, Jb's angina, sepsis, periapical abscess, and others are being considered. Patient presents with right-sided facial swelling and pain associated with the please of dental infection starting today. Reports subjective fevers at home. Pain breaking through his chronic oxycodone. Denies trauma. Is actually scheduled to follow-up with oral surgery tomorrow his history of dental infections. Been several weeks since on antibiotics. Penicillin allergy. Febrile, mildly tachycardic with leukocytosis here. Lactate was sent along with cultures. Started on clindamycin and vancomycin. Given Toradol. Fluid rehydrated. No evidence of meningitis or [employer]. Appears superficial in the right facial area but extends under the right mandible to submandibular space. CT with multiple dental issues right-sided facial cellulitis and concerning infection or inflammatory changes underlying the right submental and sublingual area concerning for Jb's angina. Periosteal abscess of mandible. Patient has no stridor or complaint of difficulty swallowing or breathing. No evidence of acute airway compromise at this time. There is no crepitus overlying this area. No lactate elevation. Given the significant findings believe admission is required for continued antibiotics and monitoring. Discussed with the [facility] hospitalist who will obtain ENT consultation in the morning. Medication Reconcilliation Current Medication List: was personally reviewed by me Blood Pressure Screening Patient's blood pressure: Elevated blood pressure Blood pressure disposition: Elevated BP felt to be situational Consults Time Called: 2108 Consulting Physician: Dr. Michel Hospitalist Returned Call: 2110 I discussed the case with Dr. Marilu Schroeder and he will evaluate the patient further. He will consult ENT in the morning. Impression Primary Impression: Facial cellulitis Additional Impression: Jb's angina Scribe Attestation The scribe's documentation has been prepared under my direction and personally reviewed by me in its entirety. I confirm that the note above accurately reflects all work, treatment, procedures, and medical decision making performed by me. Departure Information Dispostion Being Evaluated By Hospitalist Prescriptions Rizatriptan Benzoate (MAXALT) 10 Mg Tab 1 TAB PO UD for 30 Days, #9 TAB 2 Refills Prov: Nikolas Yao MD 04/24/18 Lisinopril (Prinivil) 5 Mg Tab 5 MG PO DAILY for 30 Days, #30 TAB Prov: Nikolas Yao MD 04/24/18 Referrals Joann Romero MD (PCP) Patient Instructions My [facility] Problem Qualifiers
[2018-04-24] MEDS ORDERED: OPTIRAY 320 IV PRN (19:30)
[2018-04-24] MEDS ORDERED: DEXTROSE 5% IV ONE (19:30)
[2018-04-24] MEDS ORDERED: CLINDAMYCIN IV ONE (19:30)
[2018-04-24 19:43] LABS: BASO % 0.1 %; BASO ABS # 0.03 K/uL (0-0.2); EOS % 0.5 %; EOS ABS # 0.12 K/uL (0-0.5); HEMOGLOBIN 16.8 g/dL (14.0-18.0); IG# 0.09 K/uL (0.00-0.02); LYMPH % 14.3 %; LYMPH ABS # 3.34 K/uL (1.2-3.4); MEAN CORPUSCULAR HEMOGLOBIN 32.9 pg (25-34); MEAN CORPUSCULAR HGB CONC 35.7 g/dl (32-36); MEAN PLATELET VOLUME 10.7 fL (7.4-10.4); MONO % 7.7 %; NEUT ABS # 17.95 K/uL (1.4-6.5); PLATELET COUNT 272 K/uL (130-400); RED CELL DISTRIBUTION WIDTH CV 13.4 % (11.5-14.5); RED CELL DISTRIBUTION WIDTH SD 45.3 fL (36.4-46.3); WHITE BLOOD COUNT 23.33 K/uL (4.8-10.8)
[2018-04-24 20:00] LABS: CALCIUM 9.6 mg/dl (8.5-10.1); CREATININE 1.14 mg/dl (0.60-1.40); POTASSIUM 3.2 mmol/L (3.5-5.1)
--- NOTE | 2018-04-24 20:34 | DIAGNOSTIC IMAGING REPORT ---
CT SCAN OF THE NECK WITH IV CONTRAST CLINICAL HISTORY: Right-sided facial swelling. COMPARISON STUDY: No priors. TECHNIQUE: Following the IV administration of 115 cc of Optiray 320, CT scan of the soft tissues of the neck was performed from the skull base to the upper chest. Images are reviewed in the axial, sagittal, and coronal planes. IV contrast was administered without complication. A dose lowering technique was utilized adhering to the principles of ALARA. CT DOSE: 426.59 mGy.cm FINDINGS: Soft tissues and dentition: Numerous dental caries are identified. There is a periapical lucency identified around the most posterior right maxillary molar. Periapical lucencies are also identified around a right posterior mandibular molar, the right mandibular central and lateral incisors, the right mandibular canine, as well as a left mandibular premolar and molar. There is cortical breakthrough seen around the periapical lucency involving the left mandibular molar. There is extensive superficial and deep soft tissue edema throughout the right facial soft tissues, greatest overlying the mandible. A subperiosteal abscess is seen superficial to the right anterior mandible on image #170. This measures 2.2 x 1.8 x 0.6 cm. Pharynx: There is soft tissue inflammation identified within the right submental and sublingual soft tissues, which also involves the anterior pharyngeal soft tissues. The appearance is concerning for Jb's angina. The nasopharynx is normal and appearance. There is equivocal narrowing of the supraglottic airway. There is no evidence of mass lesion. The vocal cords are symmetric. The parapharyngeal fat is maintained. The prevertebral/retropharyngeal soft tissues are within normal limits. There is no evidence of tonsillar abscess. The epiglottis is normal. Lymphadenopathy: Mildly enlarged and hyperemic submandibular and cervical lymph nodes are likely on a reactive basis. The largest node in the right cervical chain as seen on image #183 and measures 2.0 cm and length Thyroid: Normal in size and attenuation. Salivary glands: The parotid and submandibular glands are within normal limits. Brain parenchyma: The visualized brain parenchyma at the skull base is normal in appearance. Vascular structures: The carotid arteries and jugular veins are widely patent bilaterally. Skeletal structures: Imaged portions of the calvarium at the skull base are within normal limits. The cervical spine appears intact. Orbits: The bony orbits are intact. Orbital contents are normal in appearance. Sinuses and mastoids: Mild mucosal thickening is seen throughout the paranasal sinuses. The mastoid air cells are well pneumatized. Lung apices: Visualized apical lung parenchyma is clear. IMPRESSION: 1. There are numerous dental caries as well as periapical lucencies as detailed above. Follow-up with dentistry is recommended. 2. There is evidence of extensive right-sided facial cellulitis, with a subperiosteal abscess along the right anterior aspect of the mandible as detailed above. 3. Inflammatory change/infection extends into the right submental and sublingual soft tissues and also involves the anterior pharynx. The appearance is concerning for Jb's angina. 4. There is questionable narrowing of the supraglottic airway. 5. Mildly enlarged cervical lymph nodes are likely on a reactive basis. Electronically signed by: Alec Perez M.D. 04/24/2018 8:32 PM Dictated Date/Time: 04/24/2018 8:20 PM
[2018-04-24] MEDS ORDERED: VANCOMYCIN IV 1,500 MG in SODIUM CHLORIDE 0.9% 250ML 250 ML IV STA (20:53)
[2018-04-24] MEDS ORDERED: HYDROmorphone INJ 1 MG/ML SYR IV STA (20:58)
[2018-04-24] MEDS ORDERED: VANCOMYCIN CONSULT ACTIVE PRN (21:00)
[2018-04-24] MEDS ORDERED: NITROGLYCERIN 0.4 MG SL PER TAB CHARGE SL PRN (21:45)
[2018-04-24] MEDS ORDERED: ALUMINUM/MAGNESIUM/SIMETH (MAALOX MAX) 30 ML UDC PO PRN (21:45)
[2018-04-24] MEDS ORDERED: ACETAMINOPHEN 325 MG TAB PO PRN (21:45)
[2018-04-24] MEDS ORDERED: POLYETHYLENE (MIRALAX) 17 GM PACK PO PRN (21:45)
[2018-04-24] MEDS ORDERED: ONDANSETRON INJ 2 MG/ML 2 ML VIAL IV PRN (21:45)
[2018-04-24] MEDS ORDERED: RIZA10TA18 PO (21:50)
[2018-04-24] MEDS ORDERED: LISI-729 PO (21:50)
[2018-04-24] MEDS ORDERED: RIZATRIPTAN BENZOATE 10 MG TAB PO PRN (22:00)
[2018-04-24] MEDS ORDERED: POTASSIUM CHLORIDE 10 MEQ TABCR PO STA (22:03)
[2018-04-24 22:23] VITALS: Ht 172.7 cm; Wt 79.2 kg
[2018-04-24 22:27] VITALS: BP 147/80; PULSE 89; TEMP 37.8; O2SAT 94
[2018-04-24] MEDS ORDERED: OXYCODONE HCL IR 5 MG TAB (IMMEDIATE RELEASE) PO ONE ×2 (22:45)
[2018-04-24] MEDS: MIRTAZAPINE TAB 15 MG TAB PO SCH (23:13)
[2018-04-24] MEDS: MoRPHine SULFATE 4 MG/ML 1 ML CARP\\VIAL IV PRN (23:14)
[2018-04-24] MEDS: SODIUM CHLORIDE 0.9% 1000ML 1,000 ML IV SCH (23:19)
--- NOTE | 2018-04-24 23:38 | HISTORY & PHYSICAL EXAMINATION ---
DATE OF ADMISSION: 04/24/2018 CHIEF COMPLAINT: Right facial swelling. HISTORY OF PRESENT ILLNESS: This is a 37-year-old male with past medical history significant for attention deficit hyperactivity disorder, Tobacco disorder, lumbago, anxiety, migraines, panic attacks, PTSD, insomnia, chronic pain status post spinal fusion. Presents with right facial cellulitis. Patient has a history of bad teeth and is supposed to see a dentist in [place] tomorrow. Yesterday, noticed some pain in the right lower teeth and pricked it , but this caused severe pain and he woke him up in the morning with right sided facial swelling. He thought it was spreading to his lips and also was having fevers when he came to the ER. In the ER, he was febrile, he was tachycardic, and white count was elevated . Initially was feeling numb in fingers but that improved now. CT scan of soft tissue of the neck showed advanced dental caries and evidence of extensive right-sided facial cellulitis with subperiosteal abscess and also questionable narrowing of the supraglottic airway and also there is concern for Jb's angina. The patient currently is stable. Denies any difficulty swallowing. Denies any shortness of breath. He had some headache earlier but it is resolved now. He had some watery discharge from his right eye yesterday, but it is gone now. No earache. No runny nose, no sore throat, no shortness of breath. [place] hot and cold and had fever today but is feeling okay now. No chest pain. Was nauseous earlier, but that is resolved. No abdominal pain. Normal bowel and bladder movements. No blood in the stools, no blood in the urine. No rash, no swelling of the legs. ALLERGIES: PENICILLINS AND BACTRIM. PAST MEDICAL HISTORY: As mentioned above. PAST SURGICAL HISTORY: Incision of the ear drum, repair of inguinal hernia, back surgeries. MEDICATIONS: The patient is on celecoxib 50 mg p.o. t.i.d., gabapentin 200 mg p.o. at bedtime, methylphenidate ER 36 mg p.o. daily, oxycodone IR 50 mg p.o. 4 times daily, Ambien 10 mg p.o. at bedtime, baclofen 20 mg p.o. t.i.d., lisinopril 5 mg p.o. daily, Maxalt 10 mg as needed, buspirone 15 mg p.o. q.i.d., albuterol 2 puffs every 4 hours as needed, Zofran 8 mg p.r.n., mirtazapine 45 mg p.o. at bedtime. FAMILY HISTORY: Significant for father had asthma, hypertension, lung disorder, COPD, emphysema, musculoskeletal disorder. Mother had ear problems, hypertension. Brother has musculoskeletal disorder. SOCIAL HISTORY: Single. Smokes half pack a day for last 10 years. No alcohol use, no drug use. REVIEW OF SYSTEMS: As per HPI. Rest of the review of systems negative. PHYSICAL EXAMINATION: GENERAL: The patient is of moderate build, not in distress. VITAL SIGNS: T-max 39, pulse 103, respiratory rate 16, blood pressure 133/80, oxygen 97% on room air. HEENT: No pallor, no icterus. Pupils equal, round, and reactive to light. Face, swollen right side of the face. No drainage seen in the interior of the mouth. Tonsils and uvula look okay. NECK: No neck masses. CARDIOVASCULAR: S1, S2 heard. Tachycardia. No murmurs. RESPIRATORY SYSTEM: Normal AP diameter. No accessory muscle use. No wheezing, no crackles. ABDOMEN: Soft, bowel sounds present. Nontender. No distention. CENTRAL NERVOUS SYSTEM: Cranial nerves II-XII grossly intact. Nonfocal. EXTREMITIES: No edema, no erythema. LABORATORY DATA: WBC 23, hemoglobin 16.8, hematocrit 47, platelets 272. Sodium 136, potassium 3.2, chloride 99, CO2 of 29, BUN 8, creatinine 1.1, serum glucose 92, lactic acid 1.5, calcium 9.6. Soft tissue of the neck, numerous dental caries as well as periapical lucencies. Followup with dentist is recommended. Evidence of extensive right-sided facial cellulitis with subperiosteal abscess along the right anterior aspect of the mandible, has inflammatory change, infection, extensive right submental and sublingual soft tissues and also involves the anterior pharynx. The appearance is concerning for Jb's angina. There is questionable narrowing of the supraglottic airway. ASSESSMENT AND PLAN: This is a 37-year-old male who presents with right facial cellulitis and possible Jb's angina. 1. Right facial cellulitis and dental abscesses, possible early sepsis. The patient was given IV vancomycin and clindamycin in ER. We will continue clindamycin and IV Rocephin, IV fluids, pain control. Because of concern for Jb's angina and some questionable narrowing of supraglottic airway, consult ENT in a.m. Currently hemodynamically stable and saturating okay. There is no airway compromise, but will monitor in tele floor. The patient has an appointment with dentist tomorrow at [place]. We will see response for antibiotics and may need to follow with dental surgeon when discharged. 2. History of attention deficit disorder, anxiety, and panic attacks. Continue home medications. 3. Chronic pain from his back surgeries. Continue his home pain medications. Also IV morphine p.r.n. . 4. Deep venous thrombosis prophylaxis, sequential compression devices for now. 5. Disposition: Admit to tele floor. Expect discharge home and follow up with family doctor. Level 1 full code. MTDD
[2018-04-24] MEDS ORDERED: ZOLPIDEM TARTRATE 10 MG TAB PO ONE (23:45)
[2018-04-24] MEDS ORDERED: NURSING VERBAL MED ORDER ONE (23:45)
[2018-04-25] VITALS (8 sets, daily range): BP systolic 124–165; BP diastolic 71–95; PULSE 87–110; TEMP 36.4–37.5; O2SAT 91–98
[2018-04-25] MEDS: CEFTRIAXONE SOD INJ 1 GM in DEXTROSE 5% ADD-VANTAGE 50ML 50 ML IV SCH ×2 (00:59→22:16)
[2018-04-25] MEDS: MoRPHine SULFATE 4 MG/ML 1 ML CARP\\VIAL IV PRN (04:06)
[2018-04-25] MEDS: CLINDAMYCIN IV 600 MG in DEXTROSE 5% 50ML 50 ML IV SCH ×3 (04:08→20:18)
[2018-04-25] MEDS ORDERED: HYDROmorphone INJ 0.5 MG/0.5 ML SYR IV ONE (05:30)
[2018-04-25] MEDS: SODIUM CHLORIDE 0.9% 1000ML 1,000 ML IV SCH (05:37)
[2018-04-25] MEDS ORDERED: HYDROmorphone INJ 0.5 MG/0.5 ML SYR ONE (05:37)
[2018-04-25] MEDS ORDERED: DEXAMETHASONE INJ 10 MG in SYRINGE 0 ML IV ONE (06:15)
[2018-04-25 06:36] LABS: BASO % 0.3 %; BASO ABS # 0.04 K/uL (0-0.2); EOS % 0.9 %; EOS ABS # 0.13 K/uL (0-0.5); HEMATOCRIT 41.4 % (42-52); HEMOGLOBIN 14.3 g/dL (14.0-18.0); IG# 0.05 K/uL (0.00-0.02); LYMPH % 21.6 %; MEAN CELL VOLUME 92.2 fL (80-100); MEAN CORPUSCULAR HEMOGLOBIN 31.8 pg (25-34); MEAN CORPUSCULAR HGB CONC 34.5 g/dl (32-36); MEAN PLATELET VOLUME 10.4 fL (7.4-10.4); MONO % 9.5 %; MONO ABS # 1.41 K/uL (0.11-0.59); NEUT % 67.4 %; PLATELET COUNT 220 K/uL (130-400); RED CELL DISTRIBUTION WIDTH CV 13.5 % (11.5-14.5); RED CELL DISTRIBUTION WIDTH SD 45.7 fL (36.4-46.3); WHITE BLOOD COUNT 14.83 K/uL (4.8-10.8)
[2018-04-25] MEDS ORDERED: KETOROLAC TROMETHAMINE 15 MG/ML VIAL IV. PRN (06:45)
[2018-04-25] MEDS ORDERED: HYDROmorphone INJ 1 MG/ML SYR IV PRN (06:45)
[2018-04-25 07:16] LABS: CALCIUM 8.4 mg/dl (8.5-10.1); CREATININE 0.98 mg/dl (0.60-1.40)
[2018-04-25] MEDS: BusPIRone 15 MG TAB PO SCH ×4 (09:05→19:43)
[2018-04-25] MEDS: METHYLPHENIDATE 36 MG PO SCH (09:05)
[2018-04-25] MEDS: OXYCODONE HCL IR 5 MG TAB (IMMEDIATE RELEASE) PO SCH ×4 (09:05→19:42)
[2018-04-25] MEDS: BACLOFEN TAB 20 MG TAB PO SCH ×3 (09:06→19:44)
[2018-04-25] MEDS: LISINOPRIL 5 MG TAB PO SCH (09:06)
[2018-04-25] MEDS: PATIENT'S OWN CONTROLLED MED PO SCH (09:07)
[2018-04-25] MEDS: MAGNESIUM SULFATE 1GM / D5W 100 ML IV SCH ×2 (10:01→11:57)
--- NOTE | 2018-04-25 11:52 | Medical Consult ---
Consultation Date of Consultation: Apr 25, 2018. Attending Physician: Daren Gordillo M.D. History of Present Illness 37 yo male with numerous dental caries who was admitted last night for right sided facial and neck swelling. CT neck and face in the ED showed numerous dental caries, periapical lucencies, right sided subperiosteal abscess of the mandible and surround edema and inflammation. He was admitted to the medical service. They called me for ENT evaluation this am. OMFS has yet to be consulted. Patient denies any difficulty breathing. He denies any trouble swallowing. He states he knows he has bad teeth for many years. Has not had them evaluated by dentist at his home. Past Medical/Surgical History Medical Problems: (1) Acute exacerbation of chronic low back pain Status: Acute (2) Dental caries Status: Acute (3) Dentalgia Status: Acute (4) Elevated blood pressure reading Status: Acute (5) Encounter for removal of sutures Status: Acute (6) Headache Status: Acute (7) Headache Status: Acute (8) Laceration of left index finger Status: Acute (9) Jb's angina Status: Acute (10) Wound infection Status: Acute Social History Smoking Status: Current Every Day Smoker Marital Status: Housing Status: lives with family Occupation Status: employed Allergies Coded Allergies: Sulfa Drugs (Verified Allergy, Intermediate, tachycardia, hyperactivity, ) Penicillins (Verified Allergy, Unknown, HIVES, 03/09/18) Current Inpatient Medications Current Inpatient Medications Medications (Trade) Dose Ordered Sig/Narayan Route Start Time Stop Time Status Last Admin Dose Admin Ioversol (Optiray 320) 111 ml UD PRN IV 04/24/18 19:30 04/28/18 19:29 Acetaminophen (Tylenol Tab) 650 mg Q4H PRN PO 04/24/18 21:45 05/24/18 21:44 04/24/18 23:12 650 MG Al Hydrox/Mg Hydrox/Simethicone (Maalox Max Susp) 15 ml Q4H PRN PO 04/24/18 21:45 05/24/18 21:44 Ondansetron HCl (Zofran Inj) 4 mg Q6H PRN IV 04/24/18 21:45 05/24/18 21:44 Nitroglycerin (Nitrostat Tab) 0.4 mg UD PRN SL 04/24/18 21:45 05/24/18 21:44 Polyethylene (Miralax Powder Packet) 17 gm DAILY PRN PO 04/24/18 21:45 05/24/18 21:44 Baclofen (Lioresal Tab) 20 mg TID PO 04/25/18 09:00 05/25/18 08:59 04/25/18 09:06 20 MG Buspirone HCl (BusPAR TAB) 15 mg QID PO 04/25/18 09:00 05/25/18 08:59 04/25/18 09:05 15 MG Gabapentin (Neurontin Tab) 1,200 mg HS PO 04/25/18 21:00 05/25/18 20:59 Zolpidem Tartrate (Ambien Tab) 10 mg HS PO 04/25/18 21:00 05/25/18 20:59 Miscellaneous Information (Order Awaiting Action) 1 ea QS N/A 04/25/18 00:00 05/25/18 00:00 Miscellaneous Information (Order Awaiting Action) 1 ea QS N/A 04/25/18 00:00 05/25/18 00:00 Mirtazapine (Remeron Tab) 45 mg HS PO 04/24/18 23:00 05/24/18 22:59 04/24/18 23:13 45 MG Oxycodone HCl (Roxicodone Immediate Rel Tab) 15 mg QID PO 04/25/18 09:00 05/25/18 08:59 04/25/18 09:05 15 MG Clindamycin Phosphate 600 mg/ Dextrose 54 ml @ 100 mls/hr Q8H IV 04/25/18 04:00 05/05/18 21:44 04/25/18 04:08 100 MLS/HR Ceftriaxone Sodium 1 gm/ Dextrose 50 ml @ 100 mls/hr Q24H IV 04/24/18 23:00 05/04/18 21:44 04/25/18 00:59 100 MLS/HR Lisinopril (Zestril Tab) 5 mg DAILY PO 04/25/18 09:00 05/25/18 08:59 04/25/18 09:06 5 MG Rizatriptan Benzoate (Maxalt Tab) 10 mg UD PRN PO 04/24/18 22:00 05/24/18 21:59 Methylphenidate HCl (Concerta) 36 mg DAILY PO 04/25/18 09:00 05/09/18 08:59 04/25/18 09:05 36 MG Non-Formulary Medication (Patient'S Own Controlled Med) 1 ea DAILY PO 04/25/18 09:00 05/09/18 08:59 04/25/18 09:07 1 EA Hydromorphone HCl (Dilaudid Inj) 1 mg Q3HWA PRN IV 04/25/18 06:45 05/09/18 06:44 04/25/18 06:47 1 MG Ketorolac Tromethamine (Toradol Inj) 15 mg Q6H PRN IV. 04/25/18 06:45 04/30/18 06:44 Review of Systems Constitutional: No fever, No chills, No sweats, No weight loss, No weakness, No fatigue, No problem reported Eyes: No worsening of vision, No eye pain, No redness, No discharge, No diplopia, No problem reported ENT: + problem reported (see HPI) Respiratory: No cough, No sputum, No wheezing, No shortness of breath, No dyspnea on exertion, No dyspnea at rest, No hemoptysis, No problem reported Cardiovascular: No chest pain, No orthopnea, No PND, No edema, No claudication , No palpitations, No problem reported Neurologic: No memory loss, No paralysis, No weakness, No numbness/tingling, No vertigo, No balance problems, No problem reported Integumentary: No rash, No itch, No new/changing skin lesions, No color change , No bleeding, No problem reported Allergic / Immunologic: No environmental allergies, No seasonal allergies, No pet sensitivities, No food allergies, No hives, No frequent infections, No poor healing, No prolonged convalescence, No problem reported Physical Exam Date Time Temp Pulse Resp B/P (MAP) Pulse Ox O2 Delivery O2 Flow Rate FiO2 04/25/18 11:14 37.0 110 18 125/75 (92) 96 Room Air 04/25/18 11:00 Room Air 04/25/18 08:00 Room Air 04/25/18 07:04 37.5 97 18 141/95 (110) 91 Room Air 04/25/18 05:46 37.5 20 95 Room Air 04/25/18 04:10 37.1 87 18 124/84 (97) 95 Room Air 04/24/18 23:59 Room Air 04/24/18 22:27 37.8 89 18 147/80 (102) 94 Room Air 04/24/18 22:23 Room Air 04/24/18 22:05 99 18 122/72 94 04/24/18 21:47 38.1 99 18 122/72 94 Room Air 04/24/18 21:06 103 16 133/80 97 Room Air 04/24/18 20:27 39.0 95 18 138/92 96 Room Air 04/24/18 20:15 99 28 138/92 99 Room Air 04/24/18 19:46 102 04/24/18 19:07 37.8 92 18 158/113 97 Room Air PROCEDURE Fiberoptic laryngoscopy was performed. Hypopharyngeal and laryngeal airways widely patent. No edema. Vocal cord mobility normal bilaterally. Airway widely patent. Patient tolerated well. General Appearance: WD/WN, no apparent distress Head: normocephalic Eyes: normal inspection, PERRL, EOMI ENT: + pertinent finding (Right sided neck and facial swelling. Itraoral exam reveals extensive dental caries. There is no floor of mouth edema. It is soft to palpation. ) Neck: + pertinent finding (Right sided edema and adenopathy. ) Respiratory/Chest: no respiratory distress, no accessory muscle use Cardiovascular: regular rate, rhythm, no JVD Neurologic/Psych: fullerette II-XII nml as tested Skin: normal color, warm/dry Lymphatic: + pertinent finding (+ cervical adenopathy) Laboratory Results Last 24 Hours Test 04/24/18 19:25 04/24/18 19:53 04/25/18 06:24 White Blood Count 23.33 K/uL 14.83 K/uL Red Blood Count 5.11 M/uL 4.49 M/uL Hemoglobin 16.8 g/dL 14.3 g/dL Hematocrit 47.0 % 41.4 % Mean Corpuscular Volume 92.0 fL 92.2 fL Mean Corpuscular Hemoglobin 32.9 pg 31.8 pg Mean Corpuscular Hemoglobin Concent 35.7 g/dl 34.5 g/dl Platelet Count 272 K/uL 220 K/uL Mean Platelet Volume 10.7 fL 10.4 fL Neutrophils (%) (Auto) 77.0 % 67.4 % Lymphocytes (%) (Auto) 14.3 % 21.6 % Monocytes (%) (Auto) 7.7 % 9.5 % Eosinophils (%) (Auto) 0.5 % 0.9 % Basophils (%) (Auto) 0.1 % 0.3 % Neutrophils # (Auto) 17.95 K/uL 10.00 K/uL Lymphocytes # (Auto) 3.34 K/uL 3.20 K/uL Monocytes # (Auto) 1.80 K/uL 1.41 K/uL Eosinophils # (Auto) 0.12 K/uL 0.13 K/uL Basophils # (Auto) 0.03 K/uL 0.04 K/uL RDW Standard Deviation 45.3 fL 45.7 fL RDW Coefficient of Variation 13.4 % 13.5 % Immature Granulocyte % (Auto) 0.4 % 0.3 % Immature Granulocyte # (Auto) 0.09 K/uL 0.05 K/uL Sodium Level 136 mmol/L 139 mmol/L Potassium Level 3.2 mmol/L 4.0 mmol/L Chloride Level 99 mmol/L 105 mmol/L Carbon Dioxide Level 29 mmol/L 27 mmol/L Anion Gap 8.0 mmol/L 7.0 mmol/L Blood Urea Nitrogen 8 mg/dl 5 mg/dl Creatinine 1.14 mg/dl 0.98 mg/dl Est Creatinine Clear Calc Drug Dose 87.5 ml/min 101.8 ml/min Estimated GFR () 96.0 115.3 Estimated GFR (Non- 82.9 99.5 BUN/Creatinine Ratio 6.6 5.5 Random Glucose 92 mg/dl 106 mg/dl Calcium Level 9.6 mg/dl 8.4 mg/dl Lactic Acid Level 1.5 mmol/L Magnesium Level 1.7 mg/dl Troponin I < 0.015 ng/ml Assessment & Plan 37 yo male with cervical odontogenic infection - airway is widely patent. No clinical evidence of Ludwigs angina. - recommend OMFS eval for management of the odontogenic infection/subperiosteal mandibular abscess and extensive dental caries - ENT signing off. Call with any questions.
--- NOTE | 2018-04-25 13:44 | Progress Note ---
Internal Med Progress Note Date of Service: Apr 25, 2018. Provider Documentation: SUBJECTIVE: Patient seen and examined at bedside. Denies worsening swelling of right face or neck. Denies problems with breathing. Denies chest pain or shortness of breath. OBJECTIVE: GENERAL: not in distress. HEENT: EOMI Face, swollen right side of the face and right neck with tenderness. No drainage seen in the interior of the mouth with tongue blade. CARDIOVASCULAR: heart rate upper parameters of normal on exam RESPIRATORY SYSTEM: No accessory muscle use. No wheezing, no crackles. ABDOMEN: Soft, bowel sounds present. Nontender. No distention. CENTRAL NERVOUS SYSTEM: Cranial nerves II-XII grossly intact. Nonfocal. EXTREMITIES: No edema, no erythema. ASSESSMENT & PLAN: This is a 37-year-old male who presents with right facial cellulitis wih right facial swelling and right neck swelling with concerns with right mandibular abscess -patient evaluated by ENT and no airway problems -oral surgeon asked to evaluate -currently on IV anabiotics of Ceftriaxone and Clindamycin, continue Hypomagnesemia serum magnesium 1.7 given IV magnesium Nutrition NPO except medications for now If no surgical interventions then patient can be on liquid diet as tolerated Will have d5 1/2 normal saline as IV fluids for hydration for now Tobacco use Patient is aware that hospital is smoke free facility However he has craving to smoke a cigarette Patient was offered nicotine patch but he declined and reports that the patches don't work for him and that they cause burning sensation to his arm History of attention deficit disorder, anxiety, and panic attacks. Continue home medications of Concerta, Remeron, Mirtazapine Chronic pain from his back surgeries. Continue home pain medications IV morphine p.r.n. Deep venous thrombosis prophylaxis, sequential compression devices for Vital Signs: Date Time Temp Pulse Resp B/P (MAP) Pulse Ox O2 Delivery O2 Flow Rate FiO2 04/25/18 11:14 37.0 110 18 125/75 (92) 96 Room Air 04/25/18 11:00 Room Air 04/25/18 08:00 Room Air 04/25/18 07:04 37.5 97 18 141/95 (110) 91 Room Air 04/25/18 05:46 37.5 20 95 Room Air 04/25/18 04:10 37.1 87 18 124/84 (97) 95 Room Air 04/24/18 23:59 Room Air 04/24/18 22:27 37.8 89 18 147/80 (102) 94 Room Air 04/24/18 22:23 Room Air 04/24/18 22:05 99 18 122/72 94 04/24/18 21:47 38.1 99 18 122/72 94 Room Air 04/24/18 21:06 103 16 133/80 97 Room Air 04/24/18 20:27 39.0 95 18 138/92 96 Room Air 04/24/18 20:15 99 28 138/92 99 Room Air 04/24/18 19:46 102 04/24/18 19:07 37.8 92 18 158/113 97 Room Air Lab Results: Results Past 24 Hours Test 04/24/18 19:25 04/24/18 19:53 04/25/18 06:24 Range/Units White Blood Count 23.33 14.83 4.8-10.8 K/uL Red Blood Count 5.11 4.49 4.7-6.1 M/uL Hemoglobin 16.8 14.3 14.0-18.0 g/dL Hematocrit 47.0 41.4 42-52 % Mean Corpuscular Volume 92.0 92.2 80-100 fL Mean Corpuscular Hemoglobin 32.9 31.8 25-34 pg Mean Corpuscular Hemoglobin Concent 35.7 34.5 32-36 g/dl Platelet Count 272 220 130-400 K/uL Mean Platelet Volume 10.7 10.4 7.4-10.4 fL Neutrophils (%) (Auto) 77.0 67.4 % Lymphocytes (%) (Auto) 14.3 21.6 % Monocytes (%) (Auto) 7.7 9.5 % Eosinophils (%) (Auto) 0.5 0.9 % Basophils (%) (Auto) 0.1 0.3 % Neutrophils # (Auto) 17.95 10.00 1.4-6.5 K/uL Lymphocytes # (Auto) 3.34 3.20 1.2-3.4 K/uL Monocytes # (Auto) 1.80 1.41 0.11-0.59 K/uL Eosinophils # (Auto) 0.12 0.13 0-0.5 K/uL Basophils # (Auto) 0.03 0.04 0-0.2 K/uL RDW Standard Deviation 45.3 45.7 36.4-46.3 fL RDW Coefficient of Variation 13.4 13.5 11.5-14.5 % Immature Granulocyte % (Auto) 0.4 0.3 % Immature Granulocyte # (Auto) 0.09 0.05 0.00-0.02 K/uL Sodium Level 136 139 136-145 mmol/L Potassium Level 3.2 4.0 3.5-5.1 mmol/L Chloride Level 99 105 98-107 mmol/L Carbon Dioxide Level 29 27 21-32 mmol/L Anion Gap 8.0 7.0 3-11 mmol/L Blood Urea Nitrogen 8 5 7-18 mg/dl Creatinine 1.14 0.98 0.60-1.40 mg/dl Est Creatinine Clear Calc Drug Dose 87.5 101.8 ml/min Estimated GFR () 96.0 115.3 Estimated GFR (Non- 82.9 99.5 BUN/Creatinine Ratio 6.6 5.5 10-20 Random Glucose 92 106 70-99 mg/dl Calcium Level 9.6 8.4 8.5-10.1 mg/dl Lactic Acid Level 1.5 0.4-2.0 mmol/L Magnesium Level 1.7 1.8-2.4 mg/dl Troponin I < 0.015 0-0.045 ng/ml Microbiology Results 04/24/18 Blood Culture, Received Pending 04/24/18 Blood Culture, Received Pending
[2018-04-25] MEDS ORDERED: D5W AND 1/2NSS 1,000 ML IV SCH (14:00)
--- NOTE | 2018-04-25 15:43 | INTERNAL MEDICINE CONSULTATION ---
DATE OF ADMISSION: 04/24/2018 I was asked to do an floral assistant evaluation on Manfred. Manfred is in room 222 of the [facility]. He was admitted on 04/24/2018 with a diagnosis of right facial swelling and possible Jb's angina. Because the patient was concerned about the swelling in his mouth and his dental pain, he was admitted to the [facility]. Today, his hospitalist is Daren Gordillo. I was asked to see the patient to evaluate his facial swelling. I evaluated the patient today at approximately 2:00 p.m. He is awake and alert and is very comfortable. The swelling that he had last night has decreased somewhat. The patient is able to drink and take fluids very readily without any problems. Dr. Khalil, our ear, nose, and throat physician, did a nasopharyngeal scoping and after reading his report it is obvious that his oral airway and orotracheal airway are widely patent without evidence of any Jb's angina or swelling. I did a thorough evaluation of the oral cavity and I agree with his assessment. The patient has no swelling in the floor of the mouth or the tongue or pharyngeal or tonsillar area. He does have some slight tenderness over the right alveolar ridge which is suggestive of the subperiosteal abscess. However, the infection is of a chronic nature and it is quite hard and is not ready. There is no evidence of any fluctuance for drainage. The patient's dentition is very poor. There are many teeth that are fractured to the gumline with severe periodontal disease. He told me that as a result of having back surgery in 2010 and being on disability, he has neglected his dental care and probably has not been to a dentist within the last 6-7 years. Based upon the clinical examination as well as the CT scan evaluation, it is obvious that aMnfred will need the removal of all his remaining maxillary and mandibular teeth and roots. He will also need alveoplasties and reduction of some bony protuberances of the lingual aspect of the mandible. After an adequate healing phase, he will be ready for dentures. I did suggest to him that at this time the plan is as follows: 1. To discharge him from the hospital when medically appropriate. 2. Maintain him on oral antibiotics, most likely in the form of clindamycin antibiotic to be taken orally for the next 10 days. 3. He told me that he is planning on seeing an oral surgeon or dentist in the [place] area. I will be giving him the name of an oral surgeon in [place] as well as [place] for him to do followup on. 4. I would suggest that he gets the lower right teeth taken care of immediately and then he can plan on doing the more extensive dental work in the future. So at this time the impression is that of chronic facial swelling and chronic dental caries, which has caused an acute exacerbation of the lower right side submandibular and subperiosteal area. He has responded very well to the antibiotics. I would expect that he should be discharged within the next 24 hours and followed up by his family doctor and oral maxillofacial surgeons once he makes contact with them. The results of his history and physical evaluation, his CT scan and CT scan report can be made available for him upon discharge, so he can take it to the oral surgeon that he chooses to see. At this time, I feel very comfortable giving the progress that he is making and the response to the antibiotics that he can be discharged as per medical opinion. I would suggest oral antibiotics and referral to an oral maxillofacial surgeon within the next few days. I reviewed all of this with Manfred and his visitors and everyone is in agreement with the plan that I have laid out. Thank you very much for allowing me to participate in the care of your patient. If I may be of any further assistance, please do not hesitate to call.
[2018-04-25] MEDS: MIRTAZAPINE TAB 15 MG TAB PO SCH (19:44)
[2018-04-25] MEDS ORDERED: GABAPENTIN 600 MG TAB PO SCH (21:00)
[2018-04-25] MEDS ORDERED: ZOLPIDEM TARTRATE 10 MG TAB PO SCH (21:00)
[2018-04-26] VITALS: O2SAT 98
[2018-04-26] MEDS: CLINDAMYCIN IV 600 MG in DEXTROSE 5% 50ML 50 ML IV SCH (05:58)
[2018-04-26 06:15] LABS: BASO % 0.1 %; BASO ABS # 0.01 K/uL (0-0.2); EOS % 0.1 %; EOS ABS # 0.01 K/uL (0-0.5); HEMATOCRIT 42.8 % (42-52); HEMOGLOBIN 14.6 g/dL (14.0-18.0); IG# 0.05 K/uL (0.00-0.02); LYMPH % 16.5 %; LYMPH ABS # 2.87 K/uL (1.2-3.4); MEAN CELL VOLUME 93.2 fL (80-100); MEAN CORPUSCULAR HEMOGLOBIN 31.8 pg (25-34); MEAN CORPUSCULAR HGB CONC 34.1 g/dl (32-36); MEAN PLATELET VOLUME 11.4 fL (7.4-10.4); MONO % 9.4 %; MONO ABS # 1.64 K/uL (0.11-0.59); NEUT % 73.6 %; NEUT ABS # 12.84 K/uL (1.4-6.5); PLATELET COUNT 258 K/uL (130-400); RED CELL DISTRIBUTION WIDTH CV 13.6 % (11.5-14.5); RED CELL DISTRIBUTION WIDTH SD 46.2 fL (36.4-46.3); WHITE BLOOD COUNT 17.42 K/uL (4.8-10.8)
[2018-04-26 06:55] LABS: CREATININE 1.05 mg/dl (0.60-1.40); POTASSIUM 4.1 mmol/L (3.5-5.1)
[2018-04-26 07:13] VITALS: BP 113/75; PULSE 92; TEMP 36.5; O2SAT 93
[2018-04-26] MEDS ORDERED: CLC150 PO (07:54)
--- NOTE | 2018-04-26 08:08 | Progress Note ---
Internal Med Progress Note Date of Service: Apr 26, 2018. Provider Documentation: SUBJECTIVE: Patient seen and examined at bedside. Reports that the swelling of the right face face spontaneously began draining over night. This AM this swelling of right face and neck is much reduced in size. Patient expresses desire to go home with oral antibiotics as the swelling has improved. OBJECTIVE: GENERAL: not in distress. HEENT: EOMI Face: swelling of right face and neck is much reduced in size CARDIOVASCULAR: normal rate RESPIRATORY SYSTEM: No accessory muscle use. No wheezing, no crackles. ABDOMEN: Soft, bowel sounds present. Nontender. No distention. CENTRAL NERVOUS SYSTEM: Cranial nerves II-XII grossly intact. Nonfocal. EXTREMITIES: No edema, no erythema. ASSESSMENT & PLAN: CT SCAN OF THE NECK WITH IV CONTRAST on admission CLINICAL HISTORY: Right-sided facial swelling. COMPARISON STUDY: No priors. FINDINGS: "Soft tissues and dentition: Numerous dental caries are identified. There is a periapical lucency identified around the most posterior right maxillary molar. Periapical lucencies are also identified around a right posterior mandibular molar, the right mandibular central and lateral incisors, the right mandibular canine, as well as a left mandibular premolar and molar. There is cortical breakthrough seen around the periapical lucency involving the left mandibular molar. There is extensive superficial and deep soft tissue edema throughout the right facial soft tissues, greatest overlying the mandible. A subperiosteal abscess is seen superficial to the right anterior mandible on image #170. This measures 2.2 x 1.8 x 0.6 cm. Pharynx: There is soft tissue inflammation identified within the right submental and sublingual soft tissues, which also involves the anterior pharyngeal soft tissues. The appearance is concerning for Jb's angina. The nasopharynx is normal and appearance. There is equivocal narrowing of the supraglottic airway. There is no evidence of mass lesion. The vocal cords are symmetric. The parapharyngeal fat is maintained. The prevertebral/ retropharyngeal soft tissues are within normal limits. There is no evidence of tonsillar abscess. The epiglottis is normal. Lymphadenopathy: Mildly enlarged and hyperemic submandibular and cervical lymph nodes are likely on a reactive basis. The largest node in the right cervical chain as seen on image #183 and measures 2.0 cm and length Thyroid: Normal in size and attenuation. Salivary glands: The parotid and submandibular glands are within normal limits. Brain parenchyma: The visualized brain parenchyma at the skull base is normal in appearance. Vascular structures: The carotid arteries and jugular veins are widely patent bilaterally. Skeletal structures: Imaged portions of the calvarium at the skull base are within normal limits. The cervical spine appears intact. Orbits: The bony orbits are intact. Orbital contents are normal in appearance. Sinuses and mastoids: Mild mucosal thickening is seen throughout the paranasal sinuses. The mastoid air cells are well pneumatized. Lung apices: Visualized apical lung parenchyma is clear. IMPRESSION: 1. There are numerous dental caries as well as periapical lucencies as detailed above. Follow-up with dentistry is recommended. 2. There is evidence of extensive right-sided facial cellulitis, with a subperiosteal abscess along the right anterior aspect of the mandible as detailed above. 3. Inflammatory change/infection extends into the right submental and sublingual soft tissues and also involves the anterior pharynx. The appearance is concerning for Jb's angina. 4. There is questionable narrowing of the supraglottic airway. 5. Mildly enlarged cervical lymph nodes are likely on a reactive basis." Hospital Course and Plan This is a 37-year-old male who presents with right facial cellulitis wih right facial swelling and right neck swelling with concerns with right mandibular abscess vs dental abscess -was initially given Vancomycin in the ED before switched to Ceftriaxone and Clindamycin -patient evaluated by ENT Dr. Patiño on 04/25/18 and airway was deemed widely patent and no clinical evidence of Ludwigs angina after laryngoscopy -patient evaluated by oral surgeon Dr. Stovall on 04/25/18 and recommended clindamycin antibiotic to be taken orally for the next 10 days and patient was given information by Dr. Stovall for oral surgeons as outpatient -as of AM of 04/26/18 Patient reports that the swelling of the right face face spontaneously began draining over night. This AM this swelling of right face and neck is much reduced in size. Patient expresses desire to go home with oral antibiotics as the swelling has improved. Nutrition Patient on regular diet and expresses no difficulties with swallowing or taking pills Hypomagnesemia serum magnesium 1.7 during this admission and improved after given IV magnesium Tobacco use Patient was offered nicotine patch but he declined and reports that the patches don't work for him and that they cause burning sensation to his arm History of attention deficit disorder, anxiety, and panic attacks. Continue home medications of Concerta, Remeron, Mirtazapine Chronic pain from his back surgeries. Continue home pain medications Discharge Instructions Please take clindamycin for 10 days Please follow up with primary care doctor Monday04/30/18 at 12: [address] Romero at [facility] Please see oral surgeon and dentist as outpatient Vital Signs: Date Time Temp Pulse Resp B/P (MAP) Pulse Ox O2 Delivery O2 Flow Rate FiO2 04/26/18 07:13 36.5 92 16 113/75 (88) 93 04/26/18 00:00 98 Room Air 04/25/18 23:50 37.0 106 20 127/77 (94) 98 Room Air 04/25/18 18:37 37.2 88 18 165/71 (102) 93 Room Air 04/25/18 16:23 36.4 97 20 131/77 (95) 92 Room Air 04/25/18 15:54 37.0 110 18 96 04/25/18 11:14 37.0 110 18 125/75 (92) 96 Room Air 04/25/18 11:00 Room Air Lab Results: Results Past 24 Hours Test 04/26/18 05:30 Range/Units White Blood Count 17.42 4.8-10.8 K/uL Red Blood Count 4.59 4.7-6.1 M/uL Hemoglobin 14.6 14.0-18.0 g/dL Hematocrit 42.8 42-52 % Mean Corpuscular Volume 93.2 80-100 fL Mean Corpuscular Hemoglobin 31.8 25-34 pg Mean Corpuscular Hemoglobin Concent 34.1 32-36 g/dl Platelet Count 258 130-400 K/uL Mean Platelet Volume 11.4 7.4-10.4 fL Neutrophils (%) (Auto) 73.6 % Lymphocytes (%) (Auto) 16.5 % Monocytes (%) (Auto) 9.4 % Eosinophils (%) (Auto) 0.1 % Basophils (%) (Auto) 0.1 % Neutrophils # (Auto) 12.84 1.4-6.5 K/uL Lymphocytes # (Auto) 2.87 1.2-3.4 K/uL Monocytes # (Auto) 1.64 0.11-0.59 K/uL Eosinophils # (Auto) 0.01 0-0.5 K/uL Basophils # (Auto) 0.01 0-0.2 K/uL RDW Standard Deviation 46.2 36.4-46.3 fL RDW Coefficient of Variation 13.6 11.5-14.5 % Immature Granulocyte % (Auto) 0.3 % Immature Granulocyte # (Auto) 0.05 0.00-0.02 K/uL Sodium Level 137 136-145 mmol/L Potassium Level 4.1 3.5-5.1 mmol/L Chloride Level 103 98-107 mmol/L Carbon Dioxide Level 27 21-32 mmol/L Anion Gap 7.0 3-11 mmol/L Blood Urea Nitrogen 16 7-18 mg/dl Creatinine 1.05 0.60-1.40 mg/dl Est Creatinine Clear Calc Drug Dose 95.0 ml/min Estimated GFR () 106.1 Estimated GFR (Non- 91.5 BUN/Creatinine Ratio 15.1 10-20 Random Glucose 107 70-99 mg/dl Calcium Level 9.0 8.5-10.1 mg/dl Magnesium Level 2.6 1.8-2.4 mg/dl
--- NOTE | 2018-04-26 08:12 | Discharge Instructions ---
Discharge Instructions Date of Service Apr 26, 2018. Admission Reason for Admission: Facial Cellulitis Discharge Discharge Diagnosis / Problem: right facial cellulitis with right facial swelling and right neck swelling Discharge Goals Goal(s): Improve disease control Activity Recommendations Activity Limitations: per Instructions/Follow-up section . Instructions / Follow-Up Instructions / Follow-Up CT SCAN OF THE NECK WITH IV CONTRAST on admission CLINICAL HISTORY: Right-sided facial swelling. COMPARISON STUDY: No priors. FINDINGS: "Soft tissues and dentition: Numerous dental caries are identified. There is a periapical lucency identified around the most posterior right maxillary molar. Periapical lucencies are also identified around a right posterior mandibular molar, the right mandibular central and lateral incisors, the right mandibular canine, as well as a left mandibular premolar and molar. There is cortical breakthrough seen around the periapical lucency involving the left mandibular molar. There is extensive superficial and deep soft tissue edema throughout the right facial soft tissues, greatest overlying the mandible. A subperiosteal abscess is seen superficial to the right anterior mandible on image #170. This measures 2.2 x 1.8 x 0.6 cm. Pharynx: There is soft tissue inflammation identified within the right submental and sublingual soft tissues, which also involves the anterior pharyngeal soft tissues. The appearance is concerning for Jb's angina. The nasopharynx is normal and appearance. There is equivocal narrowing of the supraglottic airway. There is no evidence of mass lesion. The vocal cords are symmetric. The parapharyngeal fat is maintained. The prevertebral/ retropharyngeal soft tissues are within normal limits. There is no evidence of tonsillar abscess. The epiglottis is normal. Lymphadenopathy: Mildly enlarged and hyperemic submandibular and cervical lymph nodes are likely on a reactive basis. The largest node in the right cervical chain as seen on image #183 and measures 2.0 cm and length Thyroid: Normal in size and attenuation. Salivary glands: The parotid and submandibular glands are within normal limits. Brain parenchyma: The visualized brain parenchyma at the skull base is normal in appearance. Vascular structures: The carotid arteries and jugular veins are widely patent bilaterally. Skeletal structures: Imaged portions of the calvarium at the skull base are within normal limits. The cervical spine appears intact. Orbits: The bony orbits are intact. Orbital contents are normal in appearance. Sinuses and mastoids: Mild mucosal thickening is seen throughout the paranasal sinuses. The mastoid air cells are well pneumatized. Lung apices: Visualized apical lung parenchyma is clear. IMPRESSION: 1. There are numerous dental caries as well as periapical lucencies as detailed above. Follow-up with dentistry is recommended. 2. There is evidence of extensive right-sided facial cellulitis, with a subperiosteal abscess along the right anterior aspect of the mandible as detailed above. 3. Inflammatory change/infection extends into the right submental and sublingual soft tissues and also involves the anterior pharynx. The appearance is concerning for Jb's angina. 4. There is questionable narrowing of the supraglottic airway. 5. Mildly enlarged cervical lymph nodes are likely on a reactive basis." Hospital Course and Plan This is a 37-year-old male who presents with right facial cellulitis with right facial swelling and right neck swelling with concerns with right mandibular abscess vs dental abscess -was initially given Vancomycin in the ED before switched to Ceftriaxone and Clindamycin -patient evaluated by ENT Dr. Patiño on 04/25/18 and airway was deemed widely patent and no clinical evidence of Ludwigs angina after laryngoscopy -patient evaluated by oral surgeon Dr. Stovall on 04/25/18 and recommended clindamycin antibiotic to be taken orally for the next 10 days and patient was given information by Dr. Stovall for oral surgeons as outpatient -as of AM of 04/26/18 Patient reports that the swelling of the right face face spontaneously began draining over night. This AM this swelling of right face and neck is much reduced in size. Patient expresses desire to go home with oral antibiotics as the swelling has improved. Nutrition Patient on regular diet and expresses no difficulties with swallowing or taking pills Hypomagnesemia serum magnesium 1.7 during this admission and improved after given IV magnesium Tobacco use Patient was offered nicotine patch but he declined and reports that the patches don't work for him and that they cause burning sensation to his arm History of attention deficit disorder, anxiety, and panic attacks. Continue home medications of Concerta, Remeron, Mirtazapine Chronic pain from his back surgeries. Continue home pain medications Discharge Instructions Please take clindamycin for 10 days Please follow up with primary care doctor Monday04/30/18 at 12: [address] Romero at [facility] Please see oral surgeon and dentist as outpatient Current Hospital Diet Patient's current hospital diet: Regular Diet Discharge Diet Recommended Diet: Regular Diet Pending Studies Studies pending at discharge: no Laboratory Results 04/26/18 05:30 Red Blood Count 4.59, Mean Corpuscular Volume 93.2, Mean Corpuscular Hemoglobin 31.8, Mean Corpuscular Hemoglobin Concent 34.1, Mean Platelet Volume 11.4, Neutrophils (%) (Auto) 73.6, Lymphocytes (%) (Auto) 16.5, Monocytes (%) (Auto) 9.4, Eosinophils (%) (Auto) 0.1, Basophils (%) (Auto) 0.1, Neutrophils # (Auto) 12.84, Lymphocytes # (Auto) 2.87, Monocytes # (Auto) 1.64, Eosinophils # (Auto) 0.01, Basophils # (Auto) 0.01 04/26/18 05:30 Test 04/24/18 19:53 04/25/18 06:24 04/26/18 05:30 Lactic Acid Level 1.5 mmol/L (0.4-2.0) Troponin I < 0.015 ng/ml (0-0.045) White Blood Count 17.42 K/uL (4.8-10.8) Red Blood Count 4.59 M/uL (4.7-6.1) Hemoglobin 14.6 g/dL (14.0-18.0) Hematocrit 42.8 % (42-52) Mean Corpuscular Volume 93.2 fL (80-100) Mean Corpuscular Hemoglobin 31.8 pg (25-34) Mean Corpuscular Hemoglobin Concent 34.1 g/dl (32-36) Platelet Count 258 K/uL (130-400) Mean Platelet Volume 11.4 fL (7.4-10.4) Neutrophils (%) (Auto) 73.6 % Lymphocytes (%) (Auto) 16.5 % Monocytes (%) (Auto) 9.4 % Eosinophils (%) (Auto) 0.1 % Basophils (%) (Auto) 0.1 % Neutrophils # (Auto) 12.84 K/uL (1.4-6.5) Lymphocytes # (Auto) 2.87 K/uL (1.2-3.4) Monocytes # (Auto) 1.64 K/uL (0.11-0.59) Eosinophils # (Auto) 0.01 K/uL (0-0.5) Basophils # (Auto) 0.01 K/uL (0-0.2) RDW Standard Deviation 46.2 fL (36.4-46.3) RDW Coefficient of Variation 13.6 % (11.5-14.5) Immature Granulocyte % (Auto) 0.3 % Immature Granulocyte # (Auto) 0.05 K/uL (0.00-0.02) Anion Gap 7.0 mmol/L (3-11) Est Creatinine Clear Calc Drug Dose 95.0 ml/min Estimated GFR () 106.1 Estimated GFR (Non- 91.5 BUN/Creatinine Ratio 15.1 (10-20) Calcium Level 9.0 mg/dl (8.5-10.1) Magnesium Level 2.6 mg/dl (1.8-2.4) Date/Time Source Procedure Growth Status 04/24/18 19:53 Blood Blood Culture - Preliminary NO GROWTH TO DATE. Resulted Medical Emergencies . Who to Call and When: Medical Emergencies: If at any time you feel your situation is an emergency, please call 911 immediately. . Non-Emergent Contact Non-Emergency issues call your: Primary Care Provider, Specialist (oral surgeon / dentist) Call Non-Emergent contact if: you have any medication questions . . "Provider Documentation" section prepared by Daren Gordillo. .
--- NOTE | 2018-04-26 08:15 | Discharge Summary ---
Discharge Summary Date of Service Apr 26, 2018. Discharge Summary Admission Date: Apr 24, 2018 at 21:48 Discharge Date: Apr 26, 2018 Discharge Disposition: Home Principal Diagnosis: right facial cellulitis wih right facial swelling and right neck swelling with concerns with right mandibular abscess vs dental abscess Secondary Diagnoses/Problems: Tobacco use Hypomagnesemia chronic pain Medication Reconciliation New Medications: Clindamycin HCl (Clindamycin HCl) 150 Mg Cap 300 MG PO Q8 for 10 Days, #60 CAP Continued Medications: Baclofen (Baclofen) 20 Mg Tab 20 MG PO TID Buspirone Hcl (Buspar) 15 Mg Tab 15 MG PO QID, TAB Celecoxib (Celebrex) 50 Mg Cap 50 MG PO BID Gabapentin (Neurontin) 300 Mg Cap 1200 MG PO HS Lisinopril (Prinivil) 5 Mg Tab 5 MG PO DAILY for 30 Days, #30 TAB Methylphenidate Hcl (Concerta) 36 Mg Tab 36 MG PO DAILY, TAB Mirtazapine (Remeron) 45 Mg Tab 45 MG PO HS Oxycodone Hcl (Oxycodone Hcl) 15 Mg Tab 15 MG PO QID Rizatriptan Benzoate (Maxalt) 10 Mg Tab 1 TAB PO UD for 30 Days, #9 TAB 2 Refills Zolpidem Tartrate (Ambien) 10 Mg Tab 10 MG PO HS Admission Information HPI (per Admitting provider): CHIEF COMPLAINT: Right facial swelling. HISTORY OF PRESENT ILLNESS: This is a 37-year-old male with past medical history significant for attention deficit hyperactivity disorder, Tobacco disorder, lumbago, anxiety, migraines, panic attacks, PTSD, insomnia, chronic pain status post spinal fusion. Presents with right facial cellulitis. Patient has a history of bad teeth and is supposed to see a dentist in [place] tomorrow. Yesterday, noticed some pain in the right lower teeth and pricked it , but this caused severe pain and he woke him up in the morning with right sided facial swelling. He thought it was spreading to his lips and also was having fevers when he came to the ER. In the ER, he was febrile, he was tachycardic, and white count was elevated . Initially was feeling numb in fingers but that improved now. CT scan of soft tissue of the neck showed advanced dental caries and evidence of extensive right-sided facial cellulitis with subperiosteal abscess and also questionable narrowing of the supraglottic airway and also there is concern for Jb's angina. The patient currently is stable. Denies any difficulty swallowing. Denies any shortness of breath. He had some headache earlier but it is resolved now. He had some watery discharge from his right eye yesterday, but it is gone now. No earache. No runny nose, no sore throat, no shortness of breath. [place] hot and cold and had fever today but is feeling okay now. No chest pain. Was nauseous earlier, but that is resolved. No abdominal pain. Normal bowel and bladder movements. No blood in the stools, no blood in the urine. No rash, no swelling of the legs. ALLERGIES: PENICILLINS AND BACTRIM. PAST MEDICAL HISTORY: As mentioned above. PAST SURGICAL HISTORY: Incision of the ear drum, repair of inguinal hernia, back surgeries. MEDICATIONS: The patient is on celecoxib 50 mg p.o. t.i.d., gabapentin 200 mg p.o. at bedtime, methylphenidate ER 36 mg p.o. daily, oxycodone IR 50 mg p.o. 4 times daily, Ambien 10 mg p.o. at bedtime, baclofen 20 mg p.o. t.i.d., lisinopril 5 mg p.o. daily, Maxalt 10 mg as needed, buspirone 15 mg p.o. q.i.d., albuterol 2 puffs every 4 hours as needed, Zofran 8 mg p.r.n., mirtazapine 45 mg p.o. at bedtime. FAMILY HISTORY: Significant for father had asthma, hypertension, lung disorder, COPD, emphysema, musculoskeletal disorder. Mother had ear problems, hypertension. Brother has musculoskeletal disorder. SOCIAL HISTORY: Single. Smokes half pack a day for last 10 years. No alcohol use, no drug use. REVIEW OF SYSTEMS: As per HPI. Rest of the review of systems negative. Physical Exam (per Admitting): PHYSICAL EXAMINATION: GENERAL: The patient is of moderate build, not in distress. VITAL SIGNS: T-max 39, pulse 103, respiratory rate 16, blood pressure 133/80, oxygen 97% on room air. HEENT: No pallor, no icterus. Pupils equal, round, and reactive to light. Face, swollen right side of the face. No drainage seen in the interior of the mouth. Tonsils and uvula look okay. NECK: No neck masses. CARDIOVASCULAR: S1, S2 heard. Tachycardia. No murmurs. RESPIRATORY SYSTEM: Normal AP diameter. No accessory muscle use. No wheezing, no crackles. ABDOMEN: Soft, bowel sounds present. Nontender. No distention. CENTRAL NERVOUS SYSTEM: Cranial nerves II-XII grossly intact. Nonfocal. EXTREMITIES: No edema, no erythema. Hospital Course CT SCAN OF THE NECK WITH IV CONTRAST on admission CLINICAL HISTORY: Right-sided facial swelling. COMPARISON STUDY: No priors. FINDINGS: "Soft tissues and dentition: Numerous dental caries are identified. There is a periapical lucency identified around the most posterior right maxillary molar. Periapical lucencies are also identified around a right posterior mandibular molar, the right mandibular central and lateral incisors, the right mandibular canine, as well as a left mandibular premolar and molar. There is cortical breakthrough seen around the periapical lucency involving the left mandibular molar. There is extensive superficial and deep soft tissue edema throughout the right facial soft tissues, greatest overlying the mandible. A subperiosteal abscess is seen superficial to the right anterior mandible on image #170. This measures 2.2 x 1.8 x 0.6 cm. Pharynx: There is soft tissue inflammation identified within the right submental and sublingual soft tissues, which also involves the anterior pharyngeal soft tissues. The appearance is concerning for Jb's angina. The nasopharynx is normal and appearance. There is equivocal narrowing of the supraglottic airway. There is no evidence of mass lesion. The vocal cords are symmetric. The parapharyngeal fat is maintained. The prevertebral/ retropharyngeal soft tissues are within normal limits. There is no evidence of tonsillar abscess. The epiglottis is normal. Lymphadenopathy: Mildly enlarged and hyperemic submandibular and cervical lymph nodes are likely on a reactive basis. The largest node in the right cervical chain as seen on image #183 and measures 2.0 cm and length Thyroid: Normal in size and attenuation. Salivary glands: The parotid and submandibular glands are within normal limits. Brain parenchyma: The visualized brain parenchyma at the skull base is normal in appearance. Vascular structures: The carotid arteries and jugular veins are widely patent bilaterally. Skeletal structures: Imaged portions of the calvarium at the skull base are within normal limits. The cervical spine appears intact. Orbits: The bony orbits are intact. Orbital contents are normal in appearance. Sinuses and mastoids: Mild mucosal thickening is seen throughout the paranasal sinuses. The mastoid air cells are well pneumatized. Lung apices: Visualized apical lung parenchyma is clear. IMPRESSION: 1. There are numerous dental caries as well as periapical lucencies as detailed above. Follow-up with dentistry is recommended. 2. There is evidence of extensive right-sided facial cellulitis, with a subperiosteal abscess along the right anterior aspect of the mandible as detailed above. 3. Inflammatory change/infection extends into the right submental and sublingual soft tissues and also involves the anterior pharynx. The appearance is concerning for Jb's angina. 4. There is questionable narrowing of the supraglottic airway. 5. Mildly enlarged cervical lymph nodes are likely on a reactive basis." Hospital Course and Plan This is a 37-year-old male who presents with right facial cellulitis with right facial swelling and right neck swelling with concerns with right mandibular abscess vs dental abscess -was initially given Vancomycin in the ED before switched to Ceftriaxone and Clindamycin -patient evaluated by ENT Dr. Patiño on 04/25/18 and airway was deemed widely patent and no clinical evidence of Ludwigs angina after laryngoscopy -patient evaluated by oral surgeon Dr. Stovall on 04/25/18 and recommended clindamycin antibiotic to be taken orally for the next 10 days and patient was given information by Dr. Stovall for oral surgeons as outpatient -as of AM of 04/26/18 Patient reports that the swelling of the right face face spontaneously began draining over night. This AM this swelling of right face and neck is much reduced in size. Patient expresses desire to go home with oral antibiotics as the swelling has improved. Nutrition Patient on regular diet and expresses no difficulties with swallowing or taking pills Hypomagnesemia serum magnesium 1.7 during this admission and improved after given IV magnesium Tobacco use Patient was offered nicotine patch but he declined and reports that the patches don't work for him and that they cause burning sensation to his arm History of attention deficit disorder, anxiety, and panic attacks. Continue home medications of Concerta, Remeron, Mirtazapine Chronic pain from his back surgeries. Continue home pain medications Discharge Instructions Please take clindamycin for 10 days Please follow up with primary care doctor Monday04/30/18 at 12: [address] Romero at [facility] Please see oral surgeon and dentist as outpatient Total time spent on discharge = This includes examination of the patient, discharge planning, medication reconciliation, and communication with other providers. Discharge Instructions see above
[2018-04-26 08:43] VITALS: BP 113/75; PULSE 92; TEMP 36.5; O2SAT 93
[2018-04-26] MEDS: BACLOFEN TAB 20 MG TAB PO SCH (08:50)
[2018-04-26] MEDS: OXYCODONE HCL IR 5 MG TAB (IMMEDIATE RELEASE) PO SCH (08:50)
[2018-04-26] MEDS: PATIENT'S OWN CONTROLLED MED PO SCH (08:51)
[2018-04-26] MEDS: BusPIRone 15 MG TAB PO SCH (08:51)
[2018-04-26] MEDS: LISINOPRIL 5 MG TAB PO SCH (08:51)
[2018-04-26] MEDS: METHYLPHENIDATE 36 MG PO SCH (08:54)
[2018-04-26] MEDS ORDERED: CLINDAMYCIN HCL 150 MG CAP PO SCH (14:00)
== END 2018-04-26 10:00 | disposition home or self-care (01) | DRG 158 ==
LOC: C.EDB 19:06 → C.2T 21:48 → ENRESERV 21:58 → CANRESERV 04-25 15:26 → ENRESERV 04-25 15:26 → C.4E 04-25 16:55
PROVIDERS: ADMIT Hospitalist; ATTEND Hospitalist
DX: K02.9 Dental caries, unspecified (principal); L03.211 Cellulitis of face; K04.7 Periapical abscess without sinus; E83.42 Hypomagnesemia; F90.9 Attention-deficit hyperactivity disorder, unspecified type; F41.0 Panic disorder [episodic paroxysmal anxiety]; G89.29 Other chronic pain; M54.5 Low back pain; Z98.1 Arthrodesis status; G47.00 Insomnia, unspecified; G43.909 Migraine, unspecified, not intractable, without status migrainosus; F17.200 Nicotine dependence, unspecified, uncomplicated; Z79.891 Long term (current) use of opiate analgesic; Z79.899 Other long term (current) drug therapy; Z88.0 Allergy status to penicillin; Z88.2 Allergy status to sulfonamides